=== PATIENT | female | born 1970 | race Caucasian/White ===

== ENCOUNTER 2017-07-11 09:54 | Inpatient (IN) | payer OTHER ==
[~2017-07-11] VITALS: Ht 154.9 cm; Wt 77.1 kg
--- NOTE | ~2017-07-11 | S ---
[facility] [place] [address] SURGICAL PATH RPT PROCEDURE Name: ZOYA ROY Room #: 443-P ADM IN M.R.#: [id number] Admission: 07/11/17 Date of : 74 Discharge: Report #: [id number] Path Case #: [id number] PATHOLOGY REPORT COLLECTION DATE: 07/14/2017 RECEIVED DATE: 07/14/2017 SUBMITTING PHYS: Dr. Alexis Mcgregor, OTHER PHYS: Dr. Remy Bernstein SPECIMEN(S) RECEIVED: A.Gallbladder * * * * * * * * * * * * FINAL DIAGNOSIS: Gallbladder, cholecystectomy: - Mild chronic cholecystitis. (IUV:mml; 07/17/2017) PATHOLOGIST: Flora Donato M.D. REPORT ELECTRONICALLY SIGNED BY: Flora Donato M.D. DATE/TIME: 07/17/2017 13:27 * * * * * * * * * * * * GROSS PATHOLOGY: Received in formalin labeled "Zoya Roy gallbladder," is a 7.1 x 3.0 x 1.1 cm, previously opened gallbladder with bile-stained serosal surfaces. Opening the gallbladder reveals a velvety, bile-stained mucosa and an average wall thickness of 0.1 cm. Calculi are not present and no masses are noted grossly. Emergency Vehicle Driver sections from the body and fundus are submitted along with the proximal margin in cassette A1. (CAA; 07/14/2017) CLINICAL HISTORY: Biliary dyskinesia INITIAL CPT CODE(S): A; 19317 Professional services performed by [facility] at [facility] [address], [place] [address] Technical services performed by [facility] at [address] [place] [address]. [facility] [address] [place] [address] SURGICAL PATH RPT PROCEDURE Name: ZOYA ROY Room #: 443-P ADM IN M.R.#: [id number] Admission: 07/11/17 Date of : 74 Discharge: Report #: [id number] Path Case #: [id number] [facility] [address] [address] PHONE: [phone] DIRECTOR: Anders Rothman M.D. * * * END OF REPORT * * *
[2017-07-11 09:59] VITALS: BP 136/104
[2017-07-11 11:26] LABS: URINE BILIRUBIN 2+ (Negative); URINE BLOOD 3+ (Negative); URINE CLARITY CLEAR; URINE COLOR YELLOW; URINE GLUCOSE-RANDOM* NEGATIVE (Negative); URINE KETONES TRACE (Negative); URINE LEUKOCYTES NEGATIVE (Negative); URINE NITRITE NEGATIVE (Negative); URINE PROTEIN (DIPSTICK) 1+ (Negative); URINE SPECIFIC GRAVITY 1.025 (1.005-1.035); URINE UROBILINOGEN 0.2 E.U./dl (0.2-1.0)
[2017-07-11 11:30] LABS: ICTOTEST (BILI CONFIRMATORY) Positive (Negative)
[2017-07-11 11:31] LABS: ABSOLUTE NEUTROPHILS 6.5 thou/uL (1.4-8.2); BASOPHILS 0.5 % (0.0-2.0); EOSINOPHILS 0.3 % (0.0-3.0); HEMATOCRIT 44.6 % (37.0-47.0); HEMOGLOBIN 15.3 gm/dL (12.0-15.0); LYMPHOCYTES 19.2 % (24.0-44.0); MCH 31.9 pg (26.0-34.0); MCHC 34.3 g/dL (28.0-37.0); MCV 92.8 fL (80.0-100.0); MONOCYTES 9.8 % (1.0-8.0); PLATELET COUNT 211 thou/uL (150-400); POLYS 70.2 % (36.0-66.0); RBC 4.81 mil/uL (4.20-5.00); RDW 14.9 % (10.5-14.5); WBC 9.2 thou/uL (4.0-11.0)
[2017-07-11 11:37] LABS: CRYSTALS None Seen /LPF (None Seen); HYALINE CASTS 4-10 Moderate /LPF (None Seen); SQUAMOUS >10 Many /LPF (0-3); URINE RBC 3-10 Few /HPF (0-2); URINE WBC 0-5 Rare /HPF (0-5)
[2017-07-11 11:54] LABS: CALCIUM 9.5 mg/dL (8.5-10.1); CREATININE 0.9 mg/dL (0.6-1.0); TOTAL BILIRUBIN 0.9 mg/dL (<0.1-1.0); TOTAL PROTEIN 8.3 g/dL (6.4-8.2)
[2017-07-11] MEDS ORDERED: SAPHRIS5 MG SUBLING (11:59)
[2017-07-11] MEDS ORDERED: MELATONIN5 M1 PO (12:00)
[2017-07-11] MEDS ORDERED: CLONAZEPAM 1 MG1 M1 PO (12:01)
[2017-07-11] MEDS ORDERED: DEPAKOTE ER500 MG PO (12:02)
[2017-07-11] MEDS ORDERED: LOPID600 MG PO (12:03)
[2017-07-11] MEDS ORDERED: LASIX 20 MG TAB20 MG PO (12:03)
[2017-07-11] MEDS ORDERED: OMEPRAZOLE 20 M20 MG PO (12:07)
[2017-07-11] MEDS ORDERED: PRAZOSIN 1 MG CA1 M1 PO (12:07)
[2017-07-11] MEDS ORDERED: KLOR-CON 1010 MEQ PO (12:07)
[2017-07-11 12:13] LABS: POTASSIUM 3.7 mmol/L (3.5-5.1)
[2017-07-11 17:41] VITALS: BP 112/84
[2017-07-11 18:15] VITALS: BP 118/84
[2017-07-11 18:24] VITALS: BP 135/90
[2017-07-11 19:52] VITALS: BP 135/85
[2017-07-11 21:52] LABS: AMP/METHAMP Negative (Negative); BARBITURATES Negative (Negative); BENZODIAZEPINES POSITIVE (Negative); COCAINE Negative (Negative); METHADONE Negative (Negative); OPIATES Negative (Negative); PCP Negative (Negative)
[2017-07-11 23:49] VITALS: BP 106/69
[2017-07-12 01:10] LABS: GLYCOHEMOGLOBIN (HGB A1C) 5.4 % (4.8-5.6)
[2017-07-12 03:43] VITALS: BP 100/67
[2017-07-12 08:43] VITALS: BP 120/84
[2017-07-12 09:09] LABS: HAV IgM AB (ANTI-HAV IgM) Negative (Negative); HEPATITIS B SURFACE AG Negative (Negative); HEPATITIS C VIRUS AB <0.1 (0.0-0.9)
[2017-07-12 10:29] LABS: ALBUMIN 3.1 g/dL (3.4-5.0); DIRECT BILIRUBIN 0.2 mg/dL (<0.1-0.3); TOTAL BILIRUBIN 0.6 mg/dL (<0.1-1.0); TOTAL PROTEIN 6.7 g/dL (6.4-8.2)
[2017-07-12 17:13] VITALS: BP 114/76
[2017-07-12 20:15] VITALS: BP 112/77
[2017-07-13 04:30] VITALS: BP 107/74
[2017-07-13 05:36] LABS: HEMATOCRIT 33.5 % (37.0-47.0); MCH 32.1 pg (26.0-34.0); MCV 94.4 fL (80.0-100.0); RBC 3.55 mil/uL (4.20-5.00); RDW 14.9 % (10.5-14.5); WBC 5.2 thou/uL (4.0-11.0)
[2017-07-13 05:40] LABS: HEMOGLOBIN 11.4 gm/dL (12.0-15.0)
[2017-07-13 05:52] LABS: ALBUMIN 2.5 g/dL (3.4-5.0); CREATININE 0.6 mg/dL (0.6-1.0); POTASSIUM 3.1 mmol/L (3.5-5.1); TOTAL BILIRUBIN 0.4 mg/dL (<0.1-1.0); TOTAL PROTEIN 5.8 g/dL (6.4-8.2)
[2017-07-13 05:54] LABS: CALCIUM 7.1 mg/dL (8.5-10.1)
[2017-07-13 11:00] VITALS: BP 93/48
[2017-07-13 15:06] LABS: IgG 875 mg/dL (700-1600)
[2017-07-13 15:56] VITALS: BP 110/73
[2017-07-13 19:26] VITALS: BP 105/73
[2017-07-14] VITALS (8 sets, daily range): BP systolic 82–127; BP diastolic 47–84
[2017-07-15 03:46] LABS: HEMATOCRIT 31.4 % (37.0-47.0); HEMOGLOBIN 10.7 gm/dL (12.0-15.0); MCH 32.5 pg (26.0-34.0); MCHC 34.1 g/dL (28.0-37.0); MCV 95.4 fL (80.0-100.0); RBC 3.29 mil/uL (4.20-5.00); RDW 15.3 % (10.5-14.5); WBC 6.8 thou/uL (4.0-11.0)
[2017-07-15 04:06] LABS: CALCIUM 8.2 mg/dL (8.5-10.1); CREATININE 0.7 mg/dL (0.6-1.0); POTASSIUM 3.6 mmol/L (3.5-5.1)
[2017-07-15 04:49] VITALS: BP 110/69
[2017-07-15 08:00] VITALS: BP 112/76
[2017-07-15 16:00] VITALS: BP 114/76
[2017-07-15 18:26] VITALS: BP 135/91
[2017-07-16 04:52] VITALS: BP 123/78
[2017-07-16 08:00] VITALS: BP 128/76
[2017-07-16] MEDS ORDERED: KEFLEX500 M1 PO (10:09)
[2017-07-16] MEDS ORDERED: NORCO 10-325 T1 EACH PO (10:24)
[2017-07-16 11:07] LABS: ABSOLUTE NEUTROPHILS 2.3 thou/uL (1.4-8.2); BASOPHILS 0.5 % (0.0-2.0); EOSINOPHILS 4.1 % (0.0-3.0); HEMATOCRIT 32.2 % (37.0-47.0); HEMOGLOBIN 10.9 gm/dL (12.0-15.0); LYMPHOCYTES 42.9 % (24.0-44.0); MCH 32.3 pg (26.0-34.0); MCHC 33.9 g/dL (28.0-37.0); MCV 95.3 fL (80.0-100.0); MONOCYTES 11.7 % (1.0-8.0); PLATELET COUNT 180 thou/uL (150-400); POLYS 40.8 % (36.0-66.0); RBC 3.38 mil/uL (4.20-5.00); RDW 15.4 % (10.5-14.5); WBC 5.7 thou/uL (4.0-11.0)
[2017-07-16 11:19] LABS: ALBUMIN 2.4 g/dL (3.4-5.0); CALCIUM 8.3 mg/dL (8.5-10.1); CREATININE 0.8 mg/dL (0.6-1.0); POTASSIUM 3.5 mmol/L (3.5-5.1); TOTAL BILIRUBIN 0.3 mg/dL (<0.1-1.0); TOTAL PROTEIN 5.4 g/dL (6.4-8.2)
[2017-07-16 16:00] VITALS: BP 113/78
[2017-07-16 19:17] VITALS: BP 134/90
[2017-07-17 00:05] VITALS: BP 105/66
[2017-07-17 04:53] VITALS: BP 118/70
[2017-07-17 05:39] LABS: HEMOGLOBIN 10.8 gm/dL (12.0-15.0); MCHC 33.7 g/dL (28.0-37.0); MCV 94.9 fL (80.0-100.0); RBC 3.37 mil/uL (4.20-5.00); RDW 15.4 % (10.5-14.5); WBC 5.6 thou/uL (4.0-11.0)
[2017-07-17 08:00] VITALS: BP 107/72
[2017-07-17 14:16] VITALS: BP 107/72
[2017-07-17] MEDS ORDERED: MIRALAX17 GM PO (15:20)
[2017-07-17] MEDS ORDERED: COLACE100 MG PO (15:20)
[2018-01-15] MEDS ORDERED: PENICILLIN VK500 M1 PO (14:30)
[2018-01-15] MEDS ORDERED: MOBIC15 MG PO (14:30)
[2018-02-11] MEDS ORDERED: PRAZOSIN HCL2 MG PO (13:31)
[2018-02-11] MEDS ORDERED: AMOXICILLIN 50500 MG PO (14:12)
[2018-02-11] MEDS ORDERED: NAPROSYN500 MG PO (14:12)
[2018-02-11] MEDS ORDERED: PHENERGAN 25 MG25 M1 PO (14:23)
== END 2017-07-17 17:45 | disposition home or self-care (01) | DRG 417 ==
LOC: ER 09:54 → 4S 12:51 → EROBS 12:51 → 4S 17:58 → ENTRNSPT 07-17 17:11 → 4S 07-17 17:45
PROVIDERS: Hospitalist; Internal Medicine Gastroenterology; Nurse Practitioner; Nurse Practitioner Family
PROC: BF131ZZ Fluoroscopy of Gallbladder and Bile Ducts using Low Osmolar Contrast (ICD-10-PCS; principal; 2017-07-14)
PROC: 0FT44ZZ Resection of Gallbladder, Percutaneous Endoscopic Approach (ICD-10-PCS; principal; 2017-07-14)
DX: K85.30 Drug induced acute pancreatitis without necrosis or infection (principal); E43 Unspecified severe protein-calorie malnutrition; F31.9 Bipolar disorder, unspecified; F43.10 Post-traumatic stress disorder, unspecified; F41.9 Anxiety disorder, unspecified; K82.8 Other specified diseases of gallbladder; K86.1 Other chronic pancreatitis; K81.1 Chronic cholecystitis; J45.909 Unspecified asthma, uncomplicated; E78.5 Hyperlipidemia, unspecified; F17.210 Nicotine dependence, cigarettes, uncomplicated; I10 Essential (primary) hypertension; K76.0 Fatty (change of) liver, not elsewhere classified; R73.9 Hyperglycemia, unspecified; Z98.891 History of uterine scar from previous surgery; Z71.6 Tobacco abuse counseling; Z68.32 Body mass index [BMI] 32.0-32.9, adult; Z79.899 Other long term (current) drug therapy; Z88.1 Allergy status to other antibiotic agents; Z88.8 Allergy status to other drugs, medicaments and biological substances
CPT/HCPCS: 10195; 50010; 50101; 50249; 50411; 50555; 50558; 50962; 51489; 51975; 52265; 53307; 53310; 54022; 54118; 55245; 55317; 56462; 56525; 56526; 62110; 62900; 70005

== ENCOUNTER 2017-09-12 10:15 | Inpatient (IN) | payer OTHER ==
[~2017-09-12] VITALS: Ht 157.5 cm; Wt 75.3 kg
[~2017-09-12 10:15] MED LIST: CLONAZEPAM 1 MG1 M1 PO; COLACE100 MG PO; DEPAKOTE ER500 MG PO; KEFLEX500 M1 PO; KLOR-CON 1010 MEQ PO; LASIX 20 MG TAB20 MG PO; LOPID600 MG PO; MELATONIN5 M1 PO; MIRALAX17 GM PO; NORCO 10-325 T1 EACH PO; OMEPRAZOLE 20 M20 MG PO; PRAZOSIN 1 MG CA1 M1 PO; SAPHRIS5 MG SUBLING
[2017-09-12 10:28] VITALS: BP 147/88
[2017-09-12 10:36] LABS: URINE BILIRUBIN 2+ (Negative); URINE BLOOD 1+ (Negative); URINE CLARITY CLEAR; URINE GLUCOSE-RANDOM* TRACE (Negative); URINE KETONES TRACE (Negative); URINE LEUKOCYTES NEGATIVE (Negative); URINE NITRITE NEGATIVE (Negative); URINE PROTEIN (DIPSTICK) 1+ (Negative)
[2017-09-12 10:39] LABS: ICTOTEST (BILI CONFIRMATORY) Negative (Negative); URINE COLOR DARK YELLOW
[2017-09-12 10:54] LABS: AMP/METHAMP Negative (Negative); BARBITURATES Negative (Negative); BENZODIAZEPINES POSITIVE (Negative); COCAINE Negative (Negative); METHADONE Negative (Negative); OPIATES Negative (Negative); PCP Negative (Negative)
[2017-09-12] MEDS ORDERED: SAPHRIS10 MG SUBLING (10:54)
[2017-09-12] MEDS ORDERED: FISH OIL 1,001000 M2 PO (10:56)
[2017-09-12 10:57] LABS: CASTS None Seen /LPF (None Seen); SQUAMOUS >10 Many /LPF (0-3); URINE WBC 0-5 Rare /HPF (0-5)
[2017-09-12 10:58] LABS: BACTERIA 1-9 Few /HPF (None Seen); CRYSTALS None Seen /LPF (None Seen); URINE RBC None Seen /HPF (0-2)
[2017-09-12 11:00] LABS: ABSOLUTE NEUTROPHILS 4.6 thou/uL (1.4-8.2); BASOPHILS 0.4 % (0.0-2.0); EOSINOPHILS 0.5 % (0.0-3.0); HEMATOCRIT 40.7 % (37.0-47.0); HEMOGLOBIN 14.2 gm/dL (12.0-15.0); MCH 32.1 pg (26.0-34.0); MCHC 34.8 g/dL (28.0-37.0); MCV 92.2 fL (80.0-100.0); MONOCYTES 10.3 % (1.0-8.0); PLATELET COUNT 250 thou/uL (150-400); POLYS 62.8 % (36.0-66.0); RBC 4.42 mil/uL (4.20-5.00); RDW 14.4 % (10.5-14.5); WBC 7.3 thou/uL (4.0-11.0)
[2017-09-12] MEDS ORDERED: UNICOMPLEX M TA1 TA1 PO (11:00)
[2017-09-12] MEDS ORDERED: TRAZODONE 150150 M1 PO (11:00)
[2017-09-12 11:12] LABS: CALCIUM 10.4 mg/dL (8.5-10.1)
[2017-09-12 11:15] LABS: POTASSIUM 2.8 mmol/L (3.5-5.1)
[2017-09-12 11:27] LABS: ALBUMIN 3.6 g/dL (3.4-5.0); TOTAL BILIRUBIN 0.9 mg/dL (<0.1-1.0); TOTAL PROTEIN 7.9 g/dL (6.4-8.2)
[2017-09-12 12:09] VITALS: BP 133/80
[2017-09-12 14:20] VITALS: BP 115/77
[2017-09-12 18:56] VITALS: BP 18/56
[2017-09-13 03:20] VITALS: BP 118/81
[2017-09-13 06:08] LABS: ALBUMIN 2.9 g/dL (3.4-5.0); CALCIUM 8.9 mg/dL (8.5-10.1); CREATININE 0.8 mg/dL (0.6-1.0); PHOSPHORUS 2.3 mg/dL (2.5-4.9)
[2017-09-13 08:00] VITALS: BP 119/81
[2017-09-13 15:53] VITALS: BP 131/94
[2017-09-13 19:02] VITALS: BP 137/90
[2017-09-14 04:14] VITALS: BP 102/75
[2017-09-14 05:50] LABS: ALBUMIN 2.7 g/dL (3.4-5.0); CALCIUM 9.3 mg/dL (8.5-10.1); CREATININE 0.7 mg/dL (0.6-1.0); TOTAL BILIRUBIN 1.2 mg/dL (<0.1-1.0); TOTAL PROTEIN 6.4 g/dL (6.4-8.2)
[2017-09-14 05:58] LABS: POTASSIUM 2.9 mmol/L (3.5-5.1)
[2017-09-14 07:32] VITALS: BP 126/87
[2017-09-14 15:52] VITALS: BP 117/80
[2017-09-14 19:22] VITALS: BP 131/93
[2017-09-15 04:00] VITALS: BP 120/80
[2017-09-15 06:36] LABS: HEMATOCRIT 36.7 % (37.0-47.0); HEMOGLOBIN 12.3 gm/dL (12.0-15.0); MCH 31.6 pg (26.0-34.0); MCHC 33.4 g/dL (28.0-37.0); MCV 94.6 fL (80.0-100.0); RBC 3.88 mil/uL (4.20-5.00); RDW 15.2 % (10.5-14.5); WBC 4.9 thou/uL (4.0-11.0)
[2017-09-15 07:02] LABS: ALBUMIN 2.6 g/dL (3.4-5.0); CALCIUM 9.5 mg/dL (8.5-10.1); CREATININE 0.7 mg/dL (0.6-1.0); POTASSIUM 3.6 mmol/L (3.5-5.1); TOTAL PROTEIN 6.4 g/dL (6.4-8.2)
[2017-09-15 07:05] LABS: ALBUMIN 2.6 g/dL (3.4-5.0); DIRECT BILIRUBIN 0.6 mg/dL (<0.1-0.3); TOTAL BILIRUBIN 1.1 mg/dL (<0.1-1.0); TOTAL PROTEIN 6.4 g/dL (6.4-8.2)
[2017-09-15 08:00] VITALS: BP 116/85
[2017-09-15 16:00] VITALS: BP 148/104
[2017-09-15 19:05] VITALS: BP 129/86
[2017-09-16 03:12] VITALS: BP 130/93
[2017-09-16 07:05] VITALS: BP 124/85
[2017-09-16] MEDS ORDERED: ALPRAZOLAM 0.0.25 M1 PO (10:04)
[2017-09-16] MEDS ORDERED: PERCOCET PO (10:04)
[2017-09-16 10:40] VITALS: BP 124/85
== END 2017-09-16 14:08 | disposition home or self-care (01) | DRG 438 ==
LOC: ER 10:15 → 4W 11:50 → EROBS 11:50 → 4W 13:22
PROVIDERS: Hospitalist; Internal Medicine Gastroenterology; Physician Assistant
DX: K85.20 Alcohol induced acute pancreatitis without necrosis or infection (principal); E43 Unspecified severe protein-calorie malnutrition; J45.909 Unspecified asthma, uncomplicated; E78.5 Hyperlipidemia, unspecified; F31.9 Bipolar disorder, unspecified; E87.6 Hypokalemia; F17.210 Nicotine dependence, cigarettes, uncomplicated; Z90.49 Acquired absence of other specified parts of digestive tract; Z79.899 Other long term (current) drug therapy; Z68.30 Body mass index [BMI] 30.0-30.9, adult; Z88.1 Allergy status to other antibiotic agents
CPT/HCPCS: 10040

== ENCOUNTER 2017-12-22 14:23 | Inpatient (IN) | payer OTHER ==
[~2017-12-22] VITALS: Ht 157.5 cm; Wt 65.8 kg
--- NOTE | ~2017-12-22 | EKG ---
[place] [address] [facility] [place] [address] ELECTROCARDIOGRAM REPORT Name: ZOYA ROY Room #: 422-P ADM IN M.R.#: [id number] Admission: 12/22/17 Attend Phys: Remy Barrientos MD Discharge: Date of : 74 Report #: [id number] THIS REPORT FOR: //name// [facility] ED Test Date: 2017-12-22 Test Time: 15:23:45 Pat Name: ZOYA ROY Department: Room: 422 Gender: F Steam Setter: MZOOK : 1970 Requested By: Gary Ardon Order Number: [id number] MD: Robbie Melton Measurements Intervals [place] Rate: 77 P: 59 MI: 116 QRS: 47 QRSD: 121 T: 54 QT: 577 QTc: 654 Interpretive Statements Sinus rhythm Ventricular bigeminy Borderline short MI interval Borderline repolarization abnormality No previous ECG available for comparison Electronically Signed On 12-23-2017 10:53:47 CDT by Robbie Melton [email or web address] <ELECTRONICALLY SIGNED> By: Robbie Melton MD, [facility] 12/23/17 1053 D: [id number] Robbie Melton MD, FACC /EPI
--- NOTE | ~2017-12-22 | HC ---
[place] [address] CONSULTATION Name: ZOYA ROY Room #: 422-P [facility] IN M.R.#: [id number] Admission: 12/22/17 Attend Phys: Remy Barrientos MD Discharge: Date of : 74 Report #: [id number] THIS REPORT FOR: //name// CC: Remy Bernstein DATE OF SERVICE: 12/23/2017 HISTORY OF PRESENT ILLNESS: The patient is a 47-year-old female with recent increasing abdominal pain, nausea, vomiting, had an elevated lipase level on admission of 3145. She has had several previous episodes of pancreatitis. She states this is her third. She has a history of alcohol abuse in the past. Apparently, she states consuming alcohol 2-3 times per week; however, there is documentation from her mother that she is drinking more than this. Her lipase has dropped today being n.p.o. with IV fluids, lipase at this time is 635. She is feeling better, still having some abdominal pain and some nausea, but no vomiting. She denies any fevers or chills. She does report diarrhea, but she has had diarrhea in the past. She states she has been on Creon at home, but ran out of this medication in the last few weeks. She also states she is scheduled for an EGD and colonoscopy this Monday by different gastroenterologists for diarrhea as well as blood in the stools, which appears to be Hemoccult positive. She does report intermittent heartburn symptoms. She denies any dysphagia. Her weight has been fairly stable. She denies any chest pain or shortness of breath currently. PAST MEDICAL HISTORY: Previous history of pancreatitis, asthma, hypertension, endometriosis, previous , bipolar disorder, post-traumatic stress disorder, depression, previous laparoscopic cholecystectomy in 2018. MEDICATIONS ON ADMISSION: Saphris, melatonin, clonazepam, Depakote, Lasix, Lopid, omeprazole 20 mg b.i.d., potassium chloride, prazosin, fish oil, trazodone, multivitamin with iron, Percocet p.r.n., alprazolam p.r.n. REVIEW OF SYSTEMS: As per HPI. ALLERGIES: ERYTHROMYCIN. SOCIAL HISTORY: She does smoke cigarettes approximately 2 packs per day. Again, she consumed alcohol, she states 2-3 times per week; however, there is a possible history of alcohol abuse. FAMILY HISTORY: Negative for colon cancer. PHYSICAL EXAMINATION: VITAL SIGNS: Temperature is 97.9, pulse 64, blood pressure 91/51, respiratory [address] [address] CONSULTATION Name: ZOYA ROY Room #: 422-P [facility] IN M.R.#: [id number] Admission: 12/22/17 Attend Phys: Remy Barrientos MD Discharge: Date of : 74 Report #: [id number] rate is 18. GENERAL: She is alert and oriented x 3, in no acute distress. HEENT: Sclerae nonicteric. Oropharynx clear. NECK: Supple, without lymphadenopathy. CARDIOVASCULAR: Regular rate and rhythm. CHEST: Clear to auscultation bilaterally. ABDOMEN: Soft. She is tender to palpation, nondistended, positive bowel sounds. EXTREMITIES: No cyanosis, clubbing or edema. LABORATORY DATA: Sodium 137, potassium 2.8, potassium yesterday was 3.0, chloride 102, bicarbonate 24, BUN 5, creatinine 0.6, glucose 111. AST is 90, lipase 635, this is down from 3145 yesterday. Total bilirubin 0.9, alkaline phosphatase 228, magnesium 1.5, total protein 7.8, albumin 3.8. Alcohol on admission less than 10. WBC is 5.3, hemoglobin 13.5 and platelet count is 122. HCG was negative. Previous viral hepatitis screening panel was all negative. Previous IgG subclasses were all normal. CT scan of the abdomen and pelvis on admission shows diffuse mild hazy peripancreatic inflammation and fat stranding consistent with acute pancreatitis and marked hepatic steatosis. ASSESSMENT AND PLAN: 1. Acute pancreatitis, suspect secondary to alcohol. Lipase is improved today. She is feeling better. Agree with clear liquids, which have been started. We will continue to monitor her levels. Continue IV fluids. The patient states she has been on Creon in the past. May need to consider restarting this in the near future as well. 2. Elevated liver function test, also likely secondary to alcohol. She has hepatic steatosis on CT scan. Obviously, would recommend discontinuing alcohol. 3. The patient is reportedly scheduled for EGD and colonoscopy on Monday. We will need to see how the patient does clinically over the weekend. Thank you for allowing me to participate in her care. <ELECTRONICALLY SIGNED> By: Toñito Hussein MD 12/24/17 1029 1249 44 Toñito Hussein MD /nt
[~2017-12-22 14:23] MED LIST changes: +ALPRAZOLAM 0.0.25 M1 PO; +FISH OIL 1,001000 M2 PO; +PERCOCET PO; +SAPHRIS10 MG SUBLING; +TRAZODONE 150150 M1 PO; +UNICOMPLEX M TA1 TA1 PO
[2017-12-22 14:35] VITALS: BP 135/92
[2017-12-22 15:16] LABS: ABSOLUTE NEUTROPHILS 4.3 thou/uL (1.4-8.2); BASOPHILS 0.8 % (0.0-2.0); EOSINOPHILS 0.3 % (0.0-3.0); HEMATOCRIT 42.3 % (37.0-47.0); HEMOGLOBIN 14.7 gm/dL (12.0-15.0); LYMPHOCYTES 28.8 % (24.0-44.0); MCH 33.4 pg (26.0-34.0); MCHC 34.8 g/dL (28.0-37.0); MONOCYTES 10.8 % (1.0-8.0); PLATELET COUNT 233 thou/uL (150-400); POLYS 59.3 % (36.0-66.0); RBC 4.41 mil/uL (4.20-5.00); RDW 14.5 % (10.5-14.5); WBC 7.3 thou/uL (4.0-11.0)
[2017-12-22 15:25] LABS: URINE BLOOD NEGATIVE (Negative); URINE CLARITY CLEAR; URINE COLOR YELLOW; URINE GLUCOSE-RANDOM* NEGATIVE (Negative); URINE KETONES 1+ (Negative); URINE LEUKOCYTES-REFLEX NEGATIVE (Negative); URINE NITRITE-REFLEX NEGATIVE (Negative); URINE PROTEIN (DIPSTICK) NEGATIVE (Negative); URINE UROBILINOGEN 0.2 E.U./dl (0.2-1.0)
[2017-12-22 15:26] LABS: ANION GAP 14 mmol/L (7-16); BUN 6 mg/dL (7-18); CALCIUM 9.3 mg/dL (8.5-10.1); CHLORIDE 96 mmol/L (98-107); CO2 25 mmol/L (21-32); CREATININE 0.8 mg/dL (0.6-1.0); GLUCOSE 169 mg/dL (74-106); SODIUM 135 mmol/L (136-145)
[2017-12-22 15:26] LABS: ICTOTEST (BILI CONFIRMATORY) Negative (Negative); URINE BILIRUBIN NEGATIVE (Negative)
[2017-12-22 15:34] LABS: ALBUMIN 3.8 g/dL (3.4-5.0); SGOT 90 U/L (15-37); SGPT 42 U/L (30-65); TOTAL BILIRUBIN 0.9 mg/dL (<0.1-1.0); TOTAL PROTEIN 7.8 g/dL (6.4-8.2); TROPONIN-I <0.06 ng/mL (<0.06)
[2017-12-22 15:47] LABS: LIPASE 3145 U/L (73-393)
[2017-12-22 17:08] VITALS: BP 135/92
[2017-12-22] MEDS ORDERED: CREON DR 6,0001 EACH PO (17:43)
[2017-12-22] MEDS ORDERED: LEXAPRO 10 MG T10 M2 PO (17:44)
[2017-12-22 18:31] VITALS: BP 127/76
[2017-12-22 18:35] VITALS: BP 128/89
[2017-12-22 19:28] VITALS: BP 134/90
[2017-12-23 04:39] VITALS: BP 91/51
[2017-12-23 05:54] LABS: CALCIUM 8.4 mg/dL (8.5-10.1); CREATININE 0.6 mg/dL (0.6-1.0)
[2017-12-23 05:57] LABS: POTASSIUM 2.8 mmol/L (3.5-5.1)
[2017-12-23 06:20] LABS: HEMATOCRIT 41.9 % (37.0-47.0); HEMOGLOBIN 13.5 gm/dL (12.0-15.0); MCHC 32.2 g/dL (28.0-37.0); RBC 4.09 mil/uL (4.20-5.00); RDW 14.9 % (10.5-14.5); WBC 5.3 thou/uL (4.0-11.0)
[2017-12-23 06:23] LABS: MCV 102.4 fL (80.0-100.0)
[2017-12-23 20:30] VITALS: BP 99/69
[2017-12-24 04:30] VITALS: BP 85/52
[2017-12-24 06:52] LABS: HEMOGLOBIN 12.8 gm/dL (12.0-15.0); MCHC 32.8 g/dL (28.0-37.0); MCV 100.3 fL (80.0-100.0); RBC 3.89 mil/uL (4.20-5.00); RDW 15.1 % (10.5-14.5); WBC 5.1 thou/uL (4.0-11.0)
[2017-12-24 07:03] LABS: CALCIUM 8.7 mg/dL (8.5-10.1); CREATININE 0.6 mg/dL (0.6-1.0); POTASSIUM 3.4 mmol/L (3.5-5.1)
[2017-12-24 08:27] VITALS: BP 84/58
[2017-12-24 16:26] VITALS: BP 117/76
[2017-12-24 20:00] VITALS: BP 120/74
[2017-12-25 04:08] VITALS: BP 117/84
[2017-12-25 05:51] LABS: MCHC 33.7 g/dL (28.0-37.0); RBC 3.58 mil/uL (4.20-5.00)
[2017-12-25 05:53] LABS: HEMOGLOBIN 12.1 gm/dL (12.0-15.0); MCH 33.9 pg (26.0-34.0); MCV 100.7 fL (80.0-100.0); PLATELET COUNT 203 thou/uL (150-400); RDW 15.1 % (10.5-14.5); WBC 6.2 thou/uL (4.0-11.0)
[2017-12-25 08:29] LABS: ABSOLUTE NEUTROPHILS 1.3 thou/uL (1.4-8.2); NUCLEATED RBCS 1 /100WBC; PLATELET ESTIMATE NORMAL
[2017-12-25] MEDS ORDERED: HYDROCODON-ACE1 EAC7 PO (09:42)
[2017-12-25] MEDS ORDERED: ZOFRAN ODT4 MG PO (09:43)
[2017-12-25 11:11] VITALS: BP 117/84
== END 2017-12-25 11:24 | disposition home or self-care (01) | DRG 440 ==
LOC: ER 14:23 → EROBS 16:23 → 4E 16:23
PROVIDERS: Emergency Medicine; Hospitalist
DX: K85.20 Alcohol induced acute pancreatitis without necrosis or infection (principal); E78.5 Hyperlipidemia, unspecified; F31.9 Bipolar disorder, unspecified; F41.9 Anxiety disorder, unspecified; I10 Essential (primary) hypertension; J45.909 Unspecified asthma, uncomplicated; F10.10 Alcohol abuse, uncomplicated; F43.10 Post-traumatic stress disorder, unspecified; F17.210 Nicotine dependence, cigarettes, uncomplicated; E87.6 Hypokalemia; Z88.1 Allergy status to other antibiotic agents; Z90.49 Acquired absence of other specified parts of digestive tract; Z79.2 Long term (current) use of antibiotics; Z79.899 Other long term (current) drug therapy
CPT/HCPCS: 10084

== ENCOUNTER 2018-03-06 18:05 | Inpatient (IN) | payer OTHER ==
[~2018-03-06] VITALS: Ht 157.5 cm; Wt 59.9 kg
[~2018-03-06 18:05] MED LIST changes: +AMOXICILLIN 50500 MG PO; +CREON DR 6,0001 EACH PO; +HYDROCODON-ACE1 EAC7 PO; +LEXAPRO 10 MG T10 M2 PO; +MOBIC15 MG PO; +NAPROSYN500 MG PO; +PENICILLIN VK500 M1 PO; +PHENERGAN 25 MG25 M1 PO; +PRAZOSIN HCL2 MG PO; +ZOFRAN ODT4 MG PO
[2018-03-06 18:08] VITALS: BP 120/86
[2018-03-06 19:12] LABS: ABSOLUTE NEUTROPHILS 2.1 thou/uL (1.4-8.2); BASOPHILS 1.6 % (0.0-2.0); EOSINOPHILS 2.3 % (0.0-3.0); HEMATOCRIT 38.5 % (37.0-47.0); HEMOGLOBIN 13.3 gm/dL (12.0-15.0); LYMPHOCYTES 54.4 % (24.0-44.0); MCH 33.3 pg (26.0-34.0); MCHC 34.6 g/dL (28.0-37.0); MCV 96.2 fL (80.0-100.0); MONOCYTES 8.6 % (1.0-8.0); PLATELET COUNT 212 thou/uL (150-400); POLYS 33.1 % (36.0-66.0); RDW 15.4 % (10.5-14.5); WBC 6.4 thou/uL (4.0-11.0)
[2018-03-06 19:20] LABS: ANION GAP 14 mmol/L (7-16); BUN 14 mg/dL (7-18); CALCIUM 10.1 mg/dL (8.5-10.1); CHLORIDE 100 mmol/L (98-107); CO2 24 mmol/L (21-32); CREATININE 0.8 mg/dL (0.6-1.0); GLUCOSE 129 mg/dL (74-106); SODIUM 138 mmol/L (136-145)
[2018-03-06 19:28] LABS: TROPONIN-I <0.06 ng/mL (<0.06)
[2018-03-06 19:51] LABS: URINE BLOOD NEGATIVE (Negative); URINE CLARITY CLEAR; URINE COLOR YELLOW; URINE GLUCOSE-RANDOM* NEGATIVE (Negative); URINE KETONES TRACE (Negative); URINE LEUKOCYTES-REFLEX NEGATIVE (Negative); URINE NITRITE-REFLEX NEGATIVE (Negative); URINE PROTEIN (DIPSTICK) NEGATIVE (Negative)
[2018-03-06 19:59] LABS: AMP/METHAMP Negative (Negative); BARBITURATES Negative (Negative); BENZODIAZEPINES Negative (Negative); COCAINE Negative (Negative); METHADONE Negative (Negative); OPIATES Negative (Negative); PCP Negative (Negative)
[2018-03-06 20:02] LABS: ICTOTEST (BILI CONFIRMATORY) Negative (Negative); URINE BILIRUBIN NEGATIVE (Negative)
[2018-03-06] MEDS ORDERED: OMEPRAZOLE40 MG PO (20:05)
[2018-03-06] MEDS ORDERED: NEURONTIN 400400 M1 PO (20:08)
[2018-03-06] MEDS ORDERED: SYMBICORT160 MCG/4. INH (20:08)
[2018-03-06] MEDS ORDERED: VENTOLIN HFA 1818 GM INH (20:09)
[2018-03-06] MEDS ORDERED: SINGULAIR 10 MG10 M1 PO (20:09)
[2018-03-06] MEDS ORDERED: ZYRTEC10 M5 PO (20:10)
[2018-03-06] MEDS ORDERED: POTASSIUM CHLO10 MEQ PO (20:15)
[2018-03-06 20:38] VITALS: BP 119/81
[2018-03-06 20:51] VITALS: BP 121/83
[2018-03-06] MEDS ORDERED: NICOTINE TRANSD21 M1 ×2 (21:06→21:07)
[2018-03-06 21:10] VITALS: BP 126/92
[2018-03-07] VITALS: BP 119/77
[2018-03-07 01:22] LABS: CALCIUM 8.6 mg/dL (8.5-10.1); CREATININE 0.8 mg/dL (0.6-1.0); POTASSIUM 3.9 mmol/L (3.5-5.1)
[2018-03-07 04:25] VITALS: BP 133/83
[2018-03-07 05:46] LABS: DIRECT BILIRUBIN < 0.1 mg/dL (<0.1-0.3); SGOT 29 U/L (15-37); SGPT 24 U/L (30-65); TOTAL BILIRUBIN 0.4 mg/dL (<0.1-1.0)
[2018-03-07 07:48] VITALS: BP 108/77
[2018-03-07] MEDS ORDERED: LACTULOSE PO (09:27)
[2018-03-07] MEDS ORDERED: DEPAKOTE500 MG PO (09:27)
[2018-03-07 09:58] VITALS: BP 108/77
[2018-03-07 11:23] VITALS: BP 111/82
[2018-03-07 14:01] VITALS: BP 108/77
== END 2018-03-07 14:06 | disposition home or self-care (01) | DRG 640 ==
LOC: ER 18:05 → 3W 20:21 → EROBS 20:21 → 3W 20:51 → ENTRNSPT 03-07 14:00 → EDTRNSPTSTS 03-07 14:02 → 3W 03-07 14:06
PROVIDERS: Emergency Medicine; Nurse Practitioner Family
DX: E87.1 Hypo-osmolality and hyponatremia (principal); G93.41 Metabolic encephalopathy; G93.40 Encephalopathy, unspecified; F10.129 Alcohol abuse with intoxication, unspecified; J45.909 Unspecified asthma, uncomplicated; I10 Essential (primary) hypertension; E78.5 Hyperlipidemia, unspecified; F31.9 Bipolar disorder, unspecified; F17.210 Nicotine dependence, cigarettes, uncomplicated; F41.9 Anxiety disorder, unspecified; R74.0 Nonspecific elevation of levels of transaminase and lactic acid dehydrogenase [LDH]; F19.10 Other psychoactive substance abuse, uncomplicated; Z90.49 Acquired absence of other specified parts of digestive tract; Z88.1 Allergy status to other antibiotic agents; Z79.899 Other long term (current) drug therapy
CPT/HCPCS: 10879

== ENCOUNTER 2018-04-14 18:46 | Emergency (ER) | payer OTHER ==
[~2018-04-14] VITALS: Ht 157.5 cm; Wt 64.4 kg
--- NOTE | ~2018-04-14 | EKG ---
[address] [place] [address] ELECTROCARDIOGRAM REPORT Name: ROYZOYA Room #: DEP YUNIOR Estrada#: [id number] Admission: 04/14/18 Attend Phys: Discharge: 04/14/18 Date of : 74 Report #: [id number] THIS REPORT FOR: //name// [facility] ED Test Date: 2018-04-14 Test Time: 19:18:21 Pat Name: ZOYA ROY Department: Room: Gender: F Sports Umpire: MELISSACHYNA : 1970 Requested By: Dalton Mixon Order Number: [id number] MD: Karri Cohen Measurements Intervals [place] Rate: 72 P: 54 MO: 142 QRS: 10 QRSD: 106 T: 13 QT: 444 QTc: 486 Interpretive Statements Sinus rhythm Low voltage, precordial leads Compared to ECG 12/22/2017 15:23:45 Electronically Signed On 04-15-2018 20:44:12 CASH REGISTER BALANCER by Karri Cohen [email or web address] <ELECTRONICALLY SIGNED> By: Karri Cohen MD 04/15/182043 17 191 Karri Cohen MD /DAYNA
[~2018-04-14 18:46] MED LIST changes: +DEPAKOTE500 MG PO; +LACTULOSE PO; +NEURONTIN 400400 M1 PO; +NICOTINE TRANSD21 M1; +OMEPRAZOLE40 MG PO; +POTASSIUM CHLO10 MEQ PO; +SINGULAIR 10 MG10 M1 PO; +SYMBICORT160 MCG/4. INH; +VENTOLIN HFA 1818 GM INH; +ZYRTEC10 M5 PO
[2018-04-14 19:16] LABS: HEMATOCRIT 38.5 % (37.0-47.0); HEMOGLOBIN 13.6 gm/dL (12.0-15.0); MCH 33.8 pg (26.0-34.0); MCHC 35.2 g/dL (28.0-37.0); PLATELET COUNT 328 thou/uL (150-400); RBC 4.02 mil/uL (4.20-5.00); RDW 15.5 % (10.5-14.5); WBC 7.3 thou/uL (4.0-11.0)
[2018-04-14 19:21] LABS: CALCIUM 8.9 mg/dL (8.5-10.1); CREATININE 0.8 mg/dL (0.6-1.0); POTASSIUM 3.3 mmol/L (3.5-5.1)
[2018-04-14 19:28] LABS: TOTAL BILIRUBIN 0.3 mg/dL (<0.1-1.0); TOTAL PROTEIN 7.5 g/dL (6.4-8.2)
[2018-04-14 20:03] LABS: ABSOLUTE NEUTROPHILS 1.6 thou/uL (1.4-8.2); ATYPICAL LYMPHS 2 %
[2018-04-14] MEDS ORDERED: ZOFRAN ODT4 MG PO (21:36)
[2018-04-14 22:15] VITALS: BP 122/74
== END 2018-04-14 21:53 | disposition home or self-care (01) ==
LOC: ER 18:46
PROVIDERS: Physician Assistant
DX: R11.2 Nausea with vomiting, unspecified (principal); F10.129 Alcohol abuse with intoxication, unspecified; K70.0 Alcoholic fatty liver; I10 Essential (primary) hypertension; J45.909 Unspecified asthma, uncomplicated; E78.5 Hyperlipidemia, unspecified; F32.9 Major depressive disorder, single episode, unspecified; Z90.49 Acquired absence of other specified parts of digestive tract; F17.210 Nicotine dependence, cigarettes, uncomplicated; Z88.1 Allergy status to other antibiotic agents

== ENCOUNTER 2018-05-28 16:44 | Emergency (ER) | payer OTHER ==
[~2018-05-28] VITALS: Ht 162.6 cm; Wt 63.5 kg
[2018-05-28 16:45] VITALS: BP 118/76
[2018-05-28] MEDS ORDERED: KEFLEX500 M1 PO (17:34)
[2018-05-28] MEDS ORDERED: NAPROSYN500 MG PO (17:34)
== END 2018-05-28 17:45 | disposition home or self-care (01) ==
LOC: ER 16:44 → EDBD 16:44 → ER 17:45
DX: L03.012 Cellulitis of left finger (principal); K04.7 Periapical abscess without sinus; K02.9 Dental caries, unspecified; F17.210 Nicotine dependence, cigarettes, uncomplicated; N80.9 Endometriosis, unspecified; F31.9 Bipolar disorder, unspecified; J45.909 Unspecified asthma, uncomplicated; I10 Essential (primary) hypertension; E78.5 Hyperlipidemia, unspecified; Z90.89 Acquired absence of other organs; Z98.890 Other specified postprocedural states; Z90.49 Acquired absence of other specified parts of digestive tract; Z88.1 Allergy status to other antibiotic agents

== ENCOUNTER 2018-06-03 18:27 | Emergency (ER) | payer OTHER ==
[~2018-06-03] VITALS: Ht 154.9 cm; Wt 61.2 kg
[2018-06-03 18:30] VITALS: BP 125/86
[2018-06-03] MEDS ORDERED: MOBIC15 MG PO (18:40)
[2018-06-03] MEDS ORDERED: PENICILLIN VK500 M1 PO (18:40)
== END 2018-06-03 19:15 | disposition home or self-care (01) ==
LOC: ER 18:27 → EDBD 18:27 → ER 19:15
DX: K08.89 Other specified disorders of teeth and supporting structures (principal); G89.29 Other chronic pain; R51 Headache; F17.210 Nicotine dependence, cigarettes, uncomplicated; N80.9 Endometriosis, unspecified; F31.9 Bipolar disorder, unspecified; J45.909 Unspecified asthma, uncomplicated; I10 Essential (primary) hypertension; E78.5 Hyperlipidemia, unspecified; Z90.89 Acquired absence of other organs; Z98.890 Other specified postprocedural states; Z90.49 Acquired absence of other specified parts of digestive tract; Z88.1 Allergy status to other antibiotic agents

== ENCOUNTER 2018-06-23 16:45 | Emergency (ER) | payer OTHER ==
[~2018-06-23] VITALS: Ht 154.9 cm; Wt 61.2 kg
[2018-06-23 16:55] VITALS: BP 119/72
[2018-06-23] MEDS ORDERED: MOBIC7.5 MG PO (17:41)
== END 2018-06-23 17:54 | disposition home or self-care (01) ==
LOC: ER 16:45
DX: S90.112A Contusion of left great toe without damage to nail, initial encounter (principal); J45.909 Unspecified asthma, uncomplicated; I10 Essential (primary) hypertension; E78.5 Hyperlipidemia, unspecified; N80.9 Endometriosis, unspecified; F31.9 Bipolar disorder, unspecified; F17.210 Nicotine dependence, cigarettes, uncomplicated; Z90.49 Acquired absence of other specified parts of digestive tract; Z98.890 Other specified postprocedural states; Z88.1 Allergy status to other antibiotic agents; X50.9XXA Other and unspecified overexertion or strenuous movements or postures, initial encounter; Y93.89 Activity, other specified; Y92.89 Other specified places as the place of occurrence of the external cause; Y99.8 Other external cause status

== ENCOUNTER 2018-07-05 19:54 | Emergency (ER) | payer OTHER ==
[~2018-07-05] VITALS: Ht 157.5 cm; Wt 61.2 kg
[~2018-07-05 19:54] MED LIST changes: +MOBIC7.5 MG PO
[2018-07-05 21:29] VITALS: BP 100/56
== END 2018-07-05 21:30 | disposition home or self-care (01) ==
LOC: ER 19:54
DX: S83.8X2A Sprain of other specified parts of left knee, initial encounter (principal); S93.492A Sprain of other ligament of left ankle, initial encounter; F17.210 Nicotine dependence, cigarettes, uncomplicated; N80.9 Endometriosis, unspecified; F31.9 Bipolar disorder, unspecified; J45.909 Unspecified asthma, uncomplicated; I10 Essential (primary) hypertension; E78.5 Hyperlipidemia, unspecified; Z98.890 Other specified postprocedural states; Z90.89 Acquired absence of other organs; Z88.1 Allergy status to other antibiotic agents; Z90.49 Acquired absence of other specified parts of digestive tract; W00.0XXA Fall on same level due to ice and snow, initial encounter; Y92.89 Other specified places as the place of occurrence of the external cause; Y93.89 Activity, other specified; Y99.8 Other external cause status

== ENCOUNTER 2018-08-19 13:01 | Emergency (ER) | payer OTHER ==
[~2018-08-19] VITALS: Ht 157.5 cm; Wt 61.2 kg
[2018-08-19 13:34] LABS: ABSOLUTE NEUTROPHILS 3.8 thou/uL (1.4-8.2); BASOPHILS 0.9 % (0.0-2.0); EOSINOPHILS 1.3 % (0.0-3.0); HEMATOCRIT 40.9 % (37.0-47.0); LYMPHOCYTES 38.5 % (24.0-44.0); MCH 32.4 pg (26.0-34.0); MCHC 34.1 g/dL (28.0-37.0); MCV 94.9 fL (80.0-100.0); POLYS 52.3 % (36.0-66.0); RBC 4.31 mil/uL (4.20-5.00); RDW 18.8 % (10.5-14.5); WBC 7.3 thou/uL (4.0-11.0)
[2018-08-19 13:48] LABS: CALCIUM 8.9 mg/dL (8.5-10.1); CREATININE 0.7 mg/dL (0.6-1.0); POTASSIUM 3.1 mmol/L (3.5-5.1)
[2018-08-19 13:55] LABS: ALBUMIN 4.1 g/dL (3.4-5.0); TOTAL BILIRUBIN 0.5 mg/dL (<0.1-1.0); TOTAL PROTEIN 8.1 g/dL (6.4-8.2)
[2018-08-19 14:06] LABS: URINE BILIRUBIN NEGATIVE (Negative); URINE BLOOD NEGATIVE (Negative); URINE CLARITY CLEAR; URINE COLOR YELLOW; URINE GLUCOSE-RANDOM* NEGATIVE (Negative); URINE KETONES NEGATIVE (Negative); URINE LEUKOCYTES-REFLEX 3+ (Negative); URINE NITRITE-REFLEX NEGATIVE (Negative); URINE PROTEIN (DIPSTICK) NEGATIVE (Negative); URINE UROBILINOGEN 0.2 E.U./dl (0.2-1.0)
[2018-08-19 14:10] LABS: PLATELET COUNT 227 thou/uL (150-400)
[2018-08-19 14:11] LABS: ANISOCYTOSIS 1+; LARGE PLATELETS OCCASIONAL; PLATELET ESTIMATE NORMAL
[2018-08-19 14:14] LABS: SQUAMOUS >10 Many /LPF (0-3)
[2018-08-19 14:15] LABS: CASTS None Seen /LPF (None Seen); CRYSTALS None Seen /LPF (None Seen); URINE RBC 0-2 Rare /HPF (0-2); URINE WBC-REFLEX >25 Many /HPF (0-5)
[2018-08-19] MEDS ORDERED: KEFLEX500 M1 PO (15:33)
[2018-08-19] MEDS ORDERED: FLAGYL500 M1 PO (15:33)
[2018-08-19] MEDS ORDERED: KLOR-CON 1010 MEQ PO (15:33)
[2018-08-19] MEDS ORDERED: PHENERGAN 25 MG25 M1 PO (15:33)
[2018-08-19] MEDS ORDERED: PEPCID20 MG PO (15:33)
[2018-08-19 15:45] VITALS: BP 107/80
== END 2018-08-19 15:45 | disposition home or self-care (01) ==
LOC: ER 13:01
PROVIDERS: Physician Assistant
DX: N39.0 Urinary tract infection, site not specified (principal); A59.01 Trichomonal vulvovaginitis; E87.6 Hypokalemia; R11.2 Nausea with vomiting, unspecified; R19.7 Diarrhea, unspecified; R84.5 Abnormal microbiological findings in specimens from respiratory organs and thorax; F10.10 Alcohol abuse, uncomplicated; Y90.4 Blood alcohol level of 80-99 mg/100 ml; J45.909 Unspecified asthma, uncomplicated; I10 Essential (primary) hypertension; E78.5 Hyperlipidemia, unspecified; N80.9 Endometriosis, unspecified; F31.9 Bipolar disorder, unspecified; F17.210 Nicotine dependence, cigarettes, uncomplicated; Z90.49 Acquired absence of other specified parts of digestive tract; Z88.1 Allergy status to other antibiotic agents; Z98.890 Other specified postprocedural states

== ENCOUNTER 2018-08-24 22:17 | Inpatient (IN) | payer OTHER ==
[~2018-08-24] VITALS: Ht 157.5 cm; Wt 78.3 kg
[~2018-08-24 22:17] MED LIST changes: +FLAGYL500 M1 PO; +PEPCID20 MG PO
[2018-08-24 22:55] LABS: URINE BILIRUBIN NEGATIVE (Negative); URINE BLOOD NEGATIVE (Negative); URINE CLARITY CLEAR; URINE COLOR YELLOW; URINE GLUCOSE-RANDOM* NEGATIVE (Negative); URINE KETONES 1+ (Negative); URINE LEUKOCYTES-REFLEX TRACE (Negative); URINE NITRITE-REFLEX NEGATIVE (Negative); URINE PROTEIN (DIPSTICK) NEGATIVE (Negative); URINE SPECIFIC GRAVITY 1.015 (1.005-1.035); URINE UROBILINOGEN 0.2 E.U./dl (0.2-1.0)
[2018-08-24 23:12] VITALS: BP 96/59
[2018-08-24 23:49] LABS: ABSOLUTE NEUTROPHILS 3.1 thou/uL (1.4-8.2); BASOPHILS 1.3 % (0.0-2.0); EOSINOPHILS 1.7 % (0.0-3.0); HEMATOCRIT 40.9 % (37.0-47.0); HEMOGLOBIN 14.1 gm/dL (12.0-15.0); LYMPHOCYTES 44.8 % (24.0-44.0); MCH 32.5 pg (26.0-34.0); MCHC 34.6 g/dL (28.0-37.0); MCV 93.9 fL (80.0-100.0); MONOCYTES 9.8 % (1.0-8.0); PLATELET COUNT 228 thou/uL (150-400); POLYS 42.4 % (36.0-66.0); RBC 4.35 mil/uL (4.20-5.00); RDW 18.5 % (10.5-14.5); WBC 7.4 thou/uL (4.0-11.0)
[2018-08-25 00:04] LABS: CALCIUM 9.3 mg/dL (8.5-10.1); CREATININE 0.7 mg/dL (0.6-1.0); TOTAL BILIRUBIN 0.3 mg/dL (<0.1-1.0); TOTAL PROTEIN 7.5 g/dL (6.4-8.2)
[2018-08-25 00:10] LABS: POTASSIUM 2.9 mmol/L (3.5-5.1)
[2018-08-25 02:55] VITALS: BP 97/67
[2018-08-25 04:10] VITALS: BP 97/67
[2018-08-25 04:27] VITALS: BP 97/67
[2018-08-25 05:54] VITALS: BP 82/50
[2018-08-25 07:04] LABS: CALCIUM 8.4 mg/dL (8.5-10.1); CREATININE 0.7 mg/dL (0.6-1.0); MAGNESIUM 1.3 mg/dL (1.8-2.4); POTASSIUM 3.5 mmol/L (3.5-5.1)
--- NOTE | 2018-08-25 07:42 | NUR ---
PT IS AN ER ADMIT WHO WAS ADMITTED WITH ADOMINAL PAIN, NAUSEA AND VOMITING. PT NAUSEAOUS UPON ARRIVING TO THE FLOOR. SCHEDULED MEDS ADMINISTERED TO PT. PT IS ALERT AND ORIENTED X4. NO SIGN OF DISTRESS NOTED IN PT. ADMISSION ASSESSMENT AND EDUCATION COMPLETED. ZOFRAN ADMINISTERED TO PT DUE TO PT COMPLAINING OF NAUSEA. PT IS NPO. NO FURTHER NEEDS STATED AT THIS TIME.
[2018-08-25 11:25] VITALS: BP 106/70
--- NOTE | 2018-08-25 18:31 | NUR ---
ASSUMED CARE OF PATIENT AT 0700. PATIENT IS BEING SUPPLEMENTED WITH POTASSIUM AND MAGNESIUM WHICH TOOK THE ENTIRE COURSE OF THE DAY TO RUN DUE TO THE PATIENT'S COMPLAINTS OF PAIN. ASSESSMENTS CHARTED. PATIENT IS REQUESTING PAIN MEDS AND NAUSEA MEDS EVERY FOUR HOURS EXACTLY. PATIENT IS VERY TIME CONSUMING. PATIENT TO CONTINUE WITH POC.
[2018-08-25 20:09] LABS: MAGNESIUM 2.5 mg/dL (1.8-2.4); POTASSIUM 3.4 mmol/L (3.5-5.1)
[2018-08-25 23:49] VITALS: BP 124/88
--- NOTE | 2018-08-26 04:54 | NUR ---
ASSUMED PT CARE AT 1900 WITH NO SIGN OF DISTRESS NOTED IN PT. PT IS ALERT AND ORIENTED. PT IS STABLE AND LAYING IN PAIN. SCHEDULED MEDS ADMINISTERED TO PT. VITAL SIGNS STABLE. PAIN MEDICATION ADMINISTERED NEEDED. NO FURTHER NEEDS AT THIS TIME.
[2018-08-26 05:08] LABS: HEMATOCRIT 37.8 % (37.0-47.0); HEMOGLOBIN 12.6 gm/dL (12.0-15.0); MCH 32.2 pg (26.0-34.0); MCHC 33.2 g/dL (28.0-37.0); MCV 96.7 fL (80.0-100.0); RBC 3.91 mil/uL (4.20-5.00); WBC 6.5 thou/uL (4.0-11.0)
[2018-08-26 05:18] LABS: CALCIUM 7.4 mg/dL (8.5-10.1); CREATININE 0.5 mg/dL (0.6-1.0); POTASSIUM 3.8 mmol/L (3.5-5.1)
[2018-08-26 05:36] VITALS: BP 84/50
[2018-08-26 07:51] VITALS: BP 84/44
[2018-08-26 09:33] VITALS: BP 117/83
--- NOTE | 2018-08-26 16:52 | NUR ---
ASSUMED CARE OF PT AT 0700. PT A&OX4, UP AD CARMINA. PT HAD LOW BLOOD PRESSURE THIS AM AND PAIN MED HELD UNTIL PT WAS MORE AWAKE AND BLOOD PRESSURE NORMAL. PT'S PAIN AND NAUSEA PARTIALLY CONTROLLED WITH Q4 MORPHINE AND ZOFRAN. WILL CONT WITH POC
[2018-08-26 19:58] VITALS: BP 109/71
[2018-08-27 05:20] VITALS: BP 111/78
--- NOTE | 2018-08-27 05:58 | NUR ---
PT AMBULATING TO BATHROOM INDEPENDENTLY AND IS TOLERATING WELL. MORPHINE PROVIDING PAIN RELIEF. ZOFRAN NAUSEA RELIEF. RESTING COMFORTABLY. NO NEEDS VOICED. CALL LIGHT WITHIN REACH. WILL CONTINUE TO PROVIDE FREQUENT OBSERVATION.
[2018-08-27 08:00] VITALS: BP 97/61
[2018-08-27 10:42] LABS: CALCIUM 8.6 mg/dL (8.5-10.1); CREATININE 0.4 mg/dL (0.6-1.0); POTASSIUM 4.2 mmol/L (3.5-5.1)
[2018-08-27 12:34] VITALS: BP 112/73
--- NOTE | 2018-08-27 16:38 | NUR ---
Met with patient who resides at home with mother and uncle. She is in process of moving to independent living but at this time will dc to their home. patient does not work she rec disability. Patient does not drive. She plans uber home. She goes to [facility]. 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 She has an apt this . Patient reports she may need a note to cont to attend workouts at "the [facility]" in [place]. This program through [employer]. Bus takes patient to workout. Anticipate no dc needs but a note. EVALUATION SPECIALIST independent with all adls.
[2018-08-27 17:50] VITALS: BP 130/92
--- NOTE | 2018-08-27 19:48 | NUR ---
ASSUMED CARE OF PT AT 0700. PT SLEEPY, A&OX4, UP AD CARMINA. PT'S VITALS WNL, BP SLIGHTLY LOW IN AM. PT OFFERED SHOWER SEVERAL TIMES BUT REFUSED. PT WAS TO TRANSFER TO SENIOR SUITES BUT DENIED DUE TO AGE. PT HAD PAIN PARTIALLY CONTROLLED WITH MED AND SLEEP. PT HAD FULL LIQUIDS FOR LUNCH AND TOLERATED. PT HAD SOFT/FIBER RESTRICT FOR DINNER AND ONLY HAD A FEW BITES. PT HAD CT ABD TODAY. WILL CONT WITH POC.
[2018-08-27 19:51] VITALS: BP 131/80
[2018-08-28 05:29] LABS: CALCIUM 9.9 mg/dL (8.5-10.1); CREATININE 0.6 mg/dL (0.6-1.0); POTASSIUM 4.3 mmol/L (3.5-5.1)
--- NOTE | 2018-08-28 05:35 | NUR ---
ASSUMED CARE AROUND 1900. ADMIT WITH PANCREATITIS. AXOX4. PERSISTENT AB PAIN AND NAUSEA. TREATED PER MD ORDER. NO S/S ACUTE DISTRESS NOTED OR REPROTED AT THIS TIME. WILL CONT TO MONITOR FOR ANY CHANGES IN CONDITION.
[2018-08-28 05:50] VITALS: BP 139/80
[2018-08-28 07:39] LABS: HEMATOCRIT 37.3 % (37.0-47.0); MCH 33.6 pg (26.0-34.0); MCHC 34.9 g/dL (28.0-37.0); MCV 96.5 fL (80.0-100.0); RBC 3.87 mil/uL (4.20-5.00); RDW 18.2 % (10.5-14.5); WBC 4.9 thou/uL (4.0-11.0)
[2018-08-28 09:20] VITALS: BP 125/75
[2018-08-28] MEDS ORDERED: NORCO 5-325 TA1 EACH PO (13:43)
[2018-08-28 16:09] VITALS: BP 144/77
--- NOTE | 2018-08-28 17:14 | NUR ---
ASSUMED CARE OF PT AT SHIFT CHANGE. ASSESSMENTS CHARTED. MEDS GIVEN PER JUL. PT ALERT AND ORIENTED, VSS, O2 SATS WNL ON ROOM AIR. NO S/SX OF CARIAC OR RESP DISTRESS NOTED. PT C/O ABD PAIN, MANAGED WITH PO AND IV PAIN MEDS. C/O NAUSEA AND VOMITING, MANAGED WITH IV ZOFRAN. GI SAW PT, PLAN IS FOR EGD IN AM. VOMITING REPORTED TO GI PHYSICIAN, ORDERS RECEIVED FOR FULL LIQUID DIET UNTIL MIDNIGHT. PT UP SBA, TOLERATES WELL. DENIES CONCERNS AT THIS TIME. WILL CONTINUE TO MONITOR AND FOLLOW POC.
[2018-08-28 19:35] VITALS: BP 136/85
--- NOTE | 2018-08-29 04:01 | NUR ---
ASSUMED CARE 1899. VSS. ASSESSMENT CHARTED. PT AB PAIN CONTROLED WITH PRN PAIN MEDS. PT C/O N/V THROUGHOUT NIGHT, X2 CLEAR EMESIS- PARTIAL CONTROLED WITH PRN NAUSEA MEDS PER EMAR, SHOE STOCK ASSOCIATE NOTIFIED COMPAZINE ADDED PRN. NPO AFTER MIDNIGHT PLAN FOR EGD THIS AM. WILL CONTINUE TO MONITOR AND WITH POC.
[2018-08-29 05:36] VITALS: BP 138/80
[2018-08-29 07:19] VITALS: BP 129/72
--- NOTE | 2018-08-29 17:00 | NUR ---
ASSUMED CARE OF PT AT SHIFT CHANGE. ASSESSMENTS CHARTED. MEDS GIVEN PER JUL. PT ALERT AND ORIENTED, VSS, C/O ABD PAIN, MANAGED WITH PO AND IV PAIN MEDS. O2 SATS WNL ON ROOM AIR, NO S/SX OF CARD OR RESP DISTRESS NOTED. PT DOWN FOR EGD THIS AM. UPON RETURN PT REMAINS ALERT AND ORIENTED, CONTINUES TO C/O ABD PAIN. C/O NAUSEA THIS SHIFT, MANAGED WITH IV ZOFRAN. PT DID NOT HAVE EPISODES OF VOMITING THIS SHIFT. URINE OUTPUT ADEQUATE, TOLERATING DIET. DENIES CONCERNS AT THIS TIME. WILL CONT TO MONITOR AND FOLLOW POC.
[2018-08-29 19:07] VITALS: BP 106/62
[2018-08-30 04:45] VITALS: BP 100/64
[2018-08-30 08:00] VITALS: BP 113/63
--- NOTE | 2018-08-30 11:02 | P ---
[facility] [address] PROCEDURE REPORT Name: ZOYA ROY Room #: 218-P ADM IN M.R.#: [id number] Admission: 08/25/18 ������������������ Attend Phys: Donato Dietz MD Discharge: ������������������ Date of : 74 Report #: [id number] THIS REPORT FOR: //name// CC: Donato Bernstein MD DATE OF SERVICE: 08/29/2018 PROCEDURE: Esophagogastroduodenoscopy with biopsies. INDICATION FOR PROCEDURE: This patient has abdominal pain and nausea of undetermined etiology. CT scan shows edema and erythema of the first and second portions of the duodenum. EGD is being performed to evaluate this area more thoroughly. Informed consent for this procedure was obtained prior to the administration of any medication. The risks of the procedure, which include bleeding, perforation, infection, complications of sedation and the possibility I could miss something have been explained to the patient and she has indicated her consent by signing. Propofol was slowly titrated before and during this procedure for patient comfort by the anesthesia service. The Olympus upper videoscope was introduced through the upper esophageal sphincter and advanced under direct visualization to as far as the scope could go in the duodenum, which I believe was to the distal third portion of the duodenum. Findings are noted on withdrawal of the scope, the third portion of the duodenum appears normal. The proximal second portion of the duodenum is erythematous and edematous, as is the distal duodenal bulb and forceps were used to obtain biopsies x 2 from this area for histopathology. Good hemostasis was noted after those biopsies. The duodenal bulb proximally appears more normal. In the stomach, we have a mild diffuse patchy hemorrhagic gastritis. Biopsies were obtained from 2 places in the stomach for histopathology. Retroflex view did not reveal any hiatal hernia. The scope was withdrawn to the esophagus. There was denuding of the lining of the esophagus with the most superficial mucosal layer missing in some places, the etiology of this is not clear. This is primarily in the distal esophagus, but also in the middle esophagus. The scope was withdrawn. The patient went to the recovery area in stable condition. She tolerated the procedure well. IMPRESSION: 1. Edema and erythema of the first and second portions of the duodenum, biopsies taken as above. 2. Patchy hemorrhagic gastritis, biopsied x 2 for histopathology. 3. 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 [facility] [address] [place] [address] PROCEDURE REPORT Name: ZOYA ROY Room #: 218-P ADM IN M.R.#: [id number] Admission: 08/25/18 ������������������ Attend Phys: Donato Dietz MD Discharge: ������������������ Date of : 74 Report #: [id number] RECOMMENDATIONS: To await the path report. Start her on proton pump inhibitors. Thank you for allowing us to participate in her care. ��������������������������������������������� <ELECTRONICALLY SIGNED> ���������������������������������������� By: Lindsay Raza DO ��������������������������������������������� 08/30/18 1102 1500 0743 Lindsay Raza DO /betzy
[2018-08-30 12:43] VITALS: BP 107/72
--- NOTE | 2018-08-30 14:06 | PATH ---
[facility] [place] [address] PATHOLOGY RPT PROCEDURE Name: ZOYA ROY Room #: 218-P ADM IN M.R.#: [id number] ������������������ Admission: 08/25/18 ������������������ Date of : 74 Discharge: Report #: [id number] Path Case #: [id number] [facility] Accession Number: [id number] . 01 Material submitted: . PART A: BX DUODENITIS PART B: BX GASTRITIS R/O H-PYLORI . 01 Clinical history: . Pre-OP DX: Duodenitis Post-OP DX: Duodenitis, esophagitis, please refer to requisition for additional information . 02 Diagnosis: A. Small bowel mucosa, duodenitis, endoscopic biopsy: - Fundic-type metaplasia associated with moderate acute and chronic nonspecific duodenitis, compatible with peptic duodenitis. - Subtle villous blunting present, compatible with changes associated with duodenitis. - No increase in intraepithelial lymphocytes. . B. Gastric mucosa, gastritis rule out H. pylori, endoscopic biopsy: - Mild reactive gastropathy. - Negative for intestinal metaplasia or atrophy. - Negative for Helicobacter pylori (properly controlled immunohistochemical stain performed). . (IUV:alli; 08/30/2018) MBR/08/30/2018 . 02 Electronically signed: . Flora Donato MD, Pathologist NPI- [id number] . 01 Gross description: . A. Received in formalin labeled "Zoya Roy, BX duodenitis," are 2 segments of long soft tissue measuring 0.7 x 0.2 x 0.2 cm in aggregate dimensions and ranging from 0.3 to 0.4 cm in maximum dimension. The specimen is submitted entirely in cassette A1. . B. Received in formalin labeled "Zoya Roy, NELLY gastritis, rule out H. pylori," are 2 segments of long soft tissue measuring 0.8 x 0.4 x 0.3 cm in aggregate dimensions and ranging from 0.3 to 0.5 cm in maximum dimension. The specimen is submitted entirely in cassette B1. (TSD; 08/29/2018) TOB/TOB . [address] [place] [address] PATHOLOGY RPT PROCEDURE Name: ZOYA ROY Room #: 218-P ADM IN M.R.#: [id number] ������������������ Admission: 08/25/18 ������������������ Date of : 74 Discharge: Report #: [id number] Path Case #: [id number] Pathologist provided ICD-10: K29.80, K31.9 . 02 CPT . 484059, 984633, W60808 Specimen Comment: A courtesy copy of this report has been sent to Specimen Comment: [phone], , . Specimen Comment: Report sent to ,DR HENDERSON / DR GUILLAUME Performed at: [address] [facility], [place] [address] MD Sarkis Smith MD Phone: [phone] Performed at: [address] [id number] MD Flora Donato MD Phone: [phone]
[2018-08-30 16:00] VITALS: BP 116/78
--- NOTE | 2018-08-30 17:55 | NUR ---
ASSUMED CARE OF PT AT SHIFT CHANGE. ASSESSMENT CHARTED. MEDS GIVEN PER JUL. PT ALERT AND ORIENTED, VSS, C/O ABD PAIN- MANAGED WITH PO AND IV PAIN MEDS. O2 SATS WNL ON ROOM AIR, NO S/SX OF CARD OR RESP DISTRESS NOTED. PT C/O LOOSE DIARRHEA, GI AWARE, ORDERS RECEIVED FOR STOOL SAMPLE. PT IN ISO FOR C. DIFF PRECAUTIONS. PT UP TO BATHROOM SBA, VOIDS ADEQUATELY. APPETITE BETTER TODAY. DENIES CONCERNS AT THIS TIME. WILL CONT TO MONITOR AND FOLLOW POC.
[2018-08-30 19:50] VITALS: BP 130/83
[2018-08-31 05:42] VITALS: BP 128/76
--- NOTE | 2018-08-31 05:49 | NUR ---
PT. ON BED DURING REPORT; ST. NOT ABLE TO HAVE A BM; DRUNK PROOM JUICE IN ORDER TO HAVE A BM; AROUND 1999 PT. CALLED DUE TO BM; STOOL SAMPLE COLLECTED; HS MEDICATION GIVEN; AT 2230 PT. REQUESTED PAIN MEDICATION; PRN PAIN MEDICATION GIVEN; ABLE TO REST THROUGH THE NIGHT; C/O PAIN EARLY ON THE MORNING; PRN PAIN MEDICATION GIVEN; PAIN 8/10; ASSESSMENT CHARGED; FOLLOWING POC; WILL PASS ON REPORT.
[2018-08-31 10:17] VITALS: BP 128/76
--- NOTE | 2018-08-31 10:18 | NUR ---
DC HOME TODAY. NO CM INTERVENTIONS INDICATED. PT TO F/U WITH HER [facility] CASE [facility].
[2018-08-31 14:11] VITALS: BP 128/76
--- NOTE | 2018-08-31 14:50 | NUR ---
RECIEVED REPORT AT 0720. IN BED, NO COMPLAINTS. CDIFF STOOL RESULT IS NEGATIVE. DISCHARGE HOME IN STABLE CONDITION WITH INSTRUCTIONS AND 1 NEW PRESCRIPTION.
== END 2018-08-31 15:15 | disposition home or self-care (01) | DRG 377 ==
LOC: ER 22:17 → 2N 08-25 02:00 → EROBS 08-25 02:00 → 2N 08-25 04:10 → ENTRNSPT 08-27 12:48 → EDTRNSPTSTS 08-27 12:53 → DELTRNSPT 08-27 12:58 → ENTRNSPT 08-31 14:46 → EDTRNSPTSTS 08-31 14:48 → 2N 08-31 15:15
PROVIDERS: Nurse Practitioner Family; ADMIT Hospitalist
PROC: 0DB98ZX Excision of Duodenum, Via Natural or Artificial Opening Endoscopic, Diagnostic (ICD-10-PCS; principal; 2018-08-29)
PROC: 0DB68ZX Excision of Stomach, Via Natural or Artificial Opening Endoscopic, Diagnostic (ICD-10-PCS; principal; 2018-08-29)
DX: K29.71 Gastritis, unspecified, with bleeding (principal); K85.20 Alcohol induced acute pancreatitis without necrosis or infection; N39.0 Urinary tract infection, site not specified; K86.0 Alcohol-induced chronic pancreatitis; J45.909 Unspecified asthma, uncomplicated; I10 Essential (primary) hypertension; E78.5 Hyperlipidemia, unspecified; F31.9 Bipolar disorder, unspecified; E87.6 Hypokalemia; F17.210 Nicotine dependence, cigarettes, uncomplicated; K31.9 Disease of stomach and duodenum, unspecified; K52.9 Noninfective gastroenteritis and colitis, unspecified; K29.80 Duodenitis without bleeding; Z90.49 Acquired absence of other specified parts of digestive tract; Z88.0 Allergy status to penicillin; Z71.41 Alcohol abuse counseling and surveillance of alcoholic; Z71.6 Tobacco abuse counseling; Z79.899 Other long term (current) drug therapy
CPT/HCPCS: 10194; 62110; 62900; 70005

== ENCOUNTER 2018-09-05 15:44 | Inpatient (IN) | payer OTHER ==
[~2018-09-05] VITALS: Ht 152.4 cm; Wt 68.0 kg
[2018-09-05 15:44] VITALS: BP 119/83
[~2018-09-05 15:44] MED LIST changes: +NORCO 5-325 TA1 EACH PO
[2018-09-05 16:19] LABS: URINE BILIRUBIN NEGATIVE (Negative); URINE BLOOD NEGATIVE (Negative); URINE CLARITY CLEAR; URINE COLOR YELLOW; URINE GLUCOSE-RANDOM* NEGATIVE (Negative); URINE KETONES TRACE (Negative); URINE LEUKOCYTES NEGATIVE (Negative); URINE NITRITE NEGATIVE (Negative); URINE PROTEIN (DIPSTICK) 1+ (Negative); URINE SPECIFIC GRAVITY <= 1.005 (1.005-1.035); URINE UROBILINOGEN 0.2 E.U./dl (0.2-1.0)
[2018-09-05 16:19] LABS: ABSOLUTE NEUTROPHILS 4.2 thou/uL (1.4-8.2); BASOPHILS 1.1 % (0.0-2.0); HEMATOCRIT 44.7 % (37.0-47.0); HEMOGLOBIN 15.2 gm/dL (12.0-15.0); LYMPHOCYTES 34.7 % (24.0-44.0); MCH 32.2 pg (26.0-34.0); MCHC 34.1 g/dL (28.0-37.0); MCV 94.3 fL (80.0-100.0); MONOCYTES 8.2 % (1.0-8.0); RBC 4.73 mil/uL (4.20-5.00); WBC 7.7 thou/uL (4.0-11.0)
[2018-09-05 16:23] LABS: ANION GAP 17 mmol/L (7-16); BUN 9 mg/dL (7-18); CALCIUM 9.9 mg/dL (8.5-10.1); CHLORIDE 100 mmol/L (98-107); CO2 20 mmol/L (21-32); CREATININE 0.7 mg/dL (0.6-1.0); GLUCOSE 114 mg/dL (74-106); POTASSIUM 3.2 mmol/L (3.5-5.1); SODIUM 137 mmol/L (136-145)
[2018-09-05 16:31] LABS: ALBUMIN 4.5 g/dL (3.4-5.0); LIPASE 75 U/L (73-393); SGOT 53 U/L (15-37); SGPT 37 U/L (30-65); TOTAL BILIRUBIN 0.6 mg/dL (<0.1-1.0); TOTAL PROTEIN 8.6 g/dL (6.4-8.2); TROPONIN-I <0.06 ng/mL (<0.06)
[2018-09-05 16:32] LABS: APTT 27.8 Seconds (24.5-32.8)
[2018-09-05 16:40] LABS: PLATELET COUNT 437 thou/uL (150-400)
[2018-09-05 18:29] VITALS: BP 134/92
[2018-09-05 18:42] VITALS: BP 131/79
[2018-09-05 20:22] VITALS: BP 123/77
[2018-09-06 03:30] VITALS: BP 114/80
[2018-09-06 05:15] LABS: HEMATOCRIT 38.7 % (37.0-47.0); MCH 31.7 pg (26.0-34.0); MCV 96.1 fL (80.0-100.0); RBC 4.02 mil/uL (4.20-5.00); RDW 16.5 % (10.5-14.5)
[2018-09-06 05:19] LABS: CREATININE 0.6 mg/dL (0.6-1.0); POTASSIUM 3.1 mmol/L (3.5-5.1)
[2018-09-06 05:20] LABS: HEMOGLOBIN 12.8 gm/dL (12.0-15.0)
[2018-09-06 07:31] VITALS: BP 108/71
--- NOTE | 2018-09-06 09:21 | EKG ---
[address] [place] [address] ELECTROCARDIOGRAM REPORT Name: ZOYA ROY Room #: 459-P ADM IN M.R.#: [id number] ������������������ Admission: 09/05/18 ������������������ Attend Phys: Herrera Aviles MD Discharge: ������������������ Date of : 74 Report #: [id number] ����������������������������������������������������������������� [id number] THIS REPORT FOR: //name// [facility] ED Test Date: 2018-09-05 Test Time: 16:20:26 Pat Name: ZOYA ROY Department: Room: 45 Gender: F Film Booker: TITA : 1970 Requested By: Mikaela Rehman Order Number: [id number] MD: Robbie Melton Measurements Intervals [place] Rate: 89 P: 39 MN: 124 QRS: 5 QRSD: 106 T: 5 QT: 419 QTc: 510 Interpretive Statements Sinus rhythm RSR' in V1 or V2, right VCD Nonspecific ST and T wave abnormality Borderline prolonged QT interval Compared to ECG 04/14/2018 19:18:21 ST and T wave abnormality is now present Electronically Signed On 09-06-2018 9:21:16 CDT by Robbie Melton [email or web address] ��������������������������������������������� <ELECTRONICALLY SIGNED> ���������������������������������������� By: Robbie Melton MD, [facility] ��������������������������������������������� 09/06/18 0921 1620 1620 Robbie Melton MD, [facility] /EPI
[2018-09-06 10:52] LABS: AMP/METHAMP Negative (Negative); BARBITURATES Negative (Negative); BENZODIAZEPINES Negative (Negative); COCAINE Negative (Negative); METHADONE Negative (Negative); OPIATES Negative (Negative); PCP Negative (Negative)
[2018-09-06 13:55] VITALS: BP 124/77
--- NOTE | 2018-09-06 14:01 | NUR ---
ASSUMED CARE AT 0700, SHIFT ASSESSMENT DONE, MEDS GIVEN, VSS. REPORTED PAIN, PRN PAIN AND NAUSEA MEDS GIVEN. PATIENT REPORTING FREQUENT LOOSE STOOL. CDIFF IS PENDING. REPORTED ANXIETY, PRN ANXIETY MED GIVEN. UP AD CARMINA, CALLS APPROPRIATELY. WILL CONTINUE TO ASSESS AND ASSIST WITH ADLs NEEDED.
--- NOTE | 2018-09-06 15:01 | NUR ---
PT ADMITTED RELATED TO ABDOMINAL PAIN. CM REVIEWED CHART AND SPOKE WITH CARE TEAM. CM MET WITH PT AT BEDSIDE THIS DAY. PT IS A&0 X4. CM ROLE INTRODUCED. PT INDICATED THAT SHE HAD BEEN STAYING IN A HOUSE WITH HER MOTHER AND UNCLE MANAGER STUDY. PT INDICATED THAT IF ALL GOES WELL SHE PLANS TO MOVE INTO HER OWN APARTMENT NEXT WEEK. PT INDICATED SHE HAD BEEN INDEPENDET WITH GAIT AND ADLS MANAGER STUDY. PT INDICATED THAT SHE PLANS TO RETURN TO THE HOUSE WITH HER MOTHER AND UNCLE ONCE MEDICALLY STABLE. CM TO FOLLOW INDICATED WITH DC PLANNING.
--- NOTE | 2018-09-06 18:37 | NUR ---
PATIENT WANTED HER HOME MEDS STARTED. DR LEMA WAS PAGED AND AIRMAILED FOR TIMES WITH NO RESPONSE. TRIED TO CALL STAMP CLERK ANTONIO BUT NO RESPONSE WELL. PATIENT BROUGHT SOME HOME MEDS FROM HOME. WILL ASK TO BRING IT BACK HOME DR LEMA HAS NOT STARTED ANY OF HER HOME MEDS. WILL CONTINUE TO ASSESS AND ASSIST WITH ADLs NEEDED.
[2018-09-06 19:10] VITALS: BP 117/85
[2018-09-07 03:00] VITALS: BP 120/66
[2018-09-07 04:44] LABS: HEMATOCRIT 37.3 % (37.0-47.0); HEMOGLOBIN 12.3 gm/dL (12.0-15.0); MCH 32.1 pg (26.0-34.0); MCV 97.3 fL (80.0-100.0); RBC 3.84 mil/uL (4.20-5.00); RDW 17.1 % (10.5-14.5); WBC 5.6 thou/uL (4.0-11.0)
[2018-09-07 05:00] LABS: ALBUMIN 3.2 g/dL (3.4-5.0); CALCIUM 8.5 mg/dL (8.5-10.1); CREATININE 0.5 mg/dL (0.6-1.0); MAGNESIUM 1.8 mg/dL (1.8-2.4); POTASSIUM 3.8 mmol/L (3.5-5.1); TOTAL BILIRUBIN 0.3 mg/dL (<0.1-1.0); TOTAL PROTEIN 6.1 g/dL (6.4-8.2)
--- NOTE | 2018-09-07 07:36 | NUR ---
PATIENT SLEPT PART OF THE NIGHT. PT REPORTED SOME PAIN EHICH WAS TREATED. PATIENT IS AO X4 AND CALLS FOR HELP ACCORDINGLY. PT IS UP AD CARMINA AND HAS A STEADY GAIT. PATIENT DID REPORT HAVING SOMR NIGHTMARES. PT IS PROGRESSING TOWARDS DC GOALS.
[2018-09-07 09:29] VITALS: BP 121/79
[2018-09-07 14:52] VITALS: BP 99/60
--- NOTE | 2018-09-07 14:52 | NUR ---
CARE TEAM INDICATED PT WILL LIKELY BE MEDICALLY STABLE TO DC HOME THIS WEEKEND. PT HAS SERVICES AND SUPPORTES THROUGH [employer] AND WILL FOLLOW UP WITH THEM UPON DC. IT IS ANTICPATED THAT PT WILL HAVE NO NEEDS UPON DC. CM ABLE TO ASSIST SHOULD ANY DC NEEDS ARISE.
--- NOTE | 2018-09-07 18:31 | NUR ---
PT A&OX4, VSS, C/O OF ABD PAIN AND BEING MANAGED WITH MORPHINE. PT HAS BEEN UP AD CARMINA. NO N/V/D, TOLERATING SOFT DIET. WILL CONTINUE TO MONITOR.
[2018-09-07 20:59] VITALS: BP 117/77
--- NOTE | 2018-09-08 01:49 | NUR ---
PT SLEPT ON AND OFF DURING THE NIGHT PT USED CALL LIGHT EFFECTIVELY PT ABLE TO AMBULATE TO BATHROOM WITH STANDBY ASSIST.
[2018-09-08 04:43] VITALS: BP 124/78
[2018-09-08 08:00] VITALS: BP 147/92
[2018-09-08] MEDS ORDERED: NORCO 5-325 TA1 EACH PO (09:44)
[2018-09-08] MEDS ORDERED: LOPERAMIDE 2 MG2 M1 PO (09:49)
[2018-09-08 12:11] VITALS: BP 147/92
--- NOTE | 2018-09-08 13:53 | NUR ---
PT DISCHARGED HOME WITH MOTHER. PT A&OX4, VSS WITH C/O PAIN IN ABD, GENERAL AT 7. PAIN MANAGED WITH MORPHINE. PT VERBALIZES UNDERSTANDING OF PRESCIPTIONS AND DISCHARGE PAPERWORK. ALL BELONGINGS WITH PATIENT INCLUDING HOME MEDICATION SHE BRUNG IN.
[2018-09-08 15:32] VITALS: BP 147/92
== END 2018-09-08 15:00 | disposition home or self-care (01) | DRG 392 ==
LOC: ER 15:44 → 4W 18:15 → EROBS 18:15 → 4W 18:47
PROVIDERS: Nurse Practitioner Family; Physician Assistant; ADMIT Internal Medicine
DX: K52.9 Noninfective gastroenteritis and colitis, unspecified (principal); E86.0 Dehydration; I10 Essential (primary) hypertension; E78.5 Hyperlipidemia, unspecified; F10.10 Alcohol abuse, uncomplicated; J45.909 Unspecified asthma, uncomplicated; F17.210 Nicotine dependence, cigarettes, uncomplicated; F41.9 Anxiety disorder, unspecified; F31.9 Bipolar disorder, unspecified; F43.10 Post-traumatic stress disorder, unspecified; K29.80 Duodenitis without bleeding; K76.0 Fatty (change of) liver, not elsewhere classified; R51 Headache; Z88.1 Allergy status to other antibiotic agents; Z79.899 Other long term (current) drug therapy; Z87.11 Personal history of peptic ulcer disease; Z90.49 Acquired absence of other specified parts of digestive tract; Z98.891 History of uterine scar from previous surgery
CPT/HCPCS: 10040

== ENCOUNTER 2018-10-04 11:39 | Inpatient (IN) | payer OTHER ==
[~2018-10-04] VITALS: Ht 157.5 cm; Wt 61.2 kg
[2018-10-04 11:39] VITALS: BP 137/85
[~2018-10-04 11:39] MED LIST changes: +CLONAZEPAM 0.50.5 M1 PO; -CLONAZEPAM 1 MG1 M1 PO; +CREON DR 36,001 EACH PO; -CREON DR 6,0001 EACH PO; +LOPERAMIDE 2 MG2 M1 PO
[2018-10-04 12:49] LABS: URINE BILIRUBIN NEGATIVE (Negative); URINE BLOOD NEGATIVE (Negative); URINE CLARITY CLEAR; URINE COLOR YELLOW; URINE GLUCOSE-RANDOM* NEGATIVE (Negative); URINE KETONES NEGATIVE (Negative); URINE LEUKOCYTES-REFLEX NEGATIVE (Negative); URINE NITRITE-REFLEX NEGATIVE (Negative); URINE PROTEIN (DIPSTICK) NEGATIVE (Negative); URINE SPECIFIC GRAVITY <= 1.005 (1.005-1.035); URINE UROBILINOGEN 0.2 E.U./dl (0.2-1.0)
[2018-10-04 12:51] LABS: ABSOLUTE NEUTROPHILS 3.4 thou/uL (1.4-8.2); EOSINOPHILS 0.8 % (0.0-3.0); HEMATOCRIT 42.6 % (37.0-47.0); HEMOGLOBIN 14.5 gm/dL (12.0-15.0); LYMPHOCYTES 40.5 % (24.0-44.0); MCH 31.9 pg (26.0-34.0); MCV 93.9 fL (80.0-100.0); MONOCYTES 7.5 % (1.0-8.0); POLYS 50.2 % (36.0-66.0); RBC 4.53 mil/uL (4.20-5.00); RDW 15.1 % (10.5-14.5); WBC 6.8 thou/uL (4.0-11.0)
[2018-10-04 13:02] LABS: CALCIUM 8.9 mg/dL (8.5-10.1); CREATININE 0.5 mg/dL (0.6-1.0); POTASSIUM 3.2 mmol/L (3.5-5.1)
[2018-10-04] MEDS ORDERED: CREON DR 12,001 EACH PO (13:07)
[2018-10-04 13:08] LABS: ALBUMIN 3.9 g/dL (3.4-5.0); TOTAL BILIRUBIN 0.4 mg/dL (<0.1-1.0); TOTAL PROTEIN 7.5 g/dL (6.4-8.2)
[2018-10-04] MEDS ORDERED: TYLENOL SINUS1 EAC5 PO (13:08)
--- NOTE | 2018-10-04 13:10 | NUR ---
PT REPORTS THAT SHE THINKS SHE NEEDS TO BE CHECKED FOR POSION. PT REPORTS THAT THERE IS NO LIGHTS OR ELECTRICITY AT HER HOME.
[2018-10-04 13:54] LABS: PLATELET COUNT 219 thou/uL (150-400)
[2018-10-04 17:45] VITALS: BP 143/100
--- NOTE | 2018-10-04 18:37 | NUR ---
REC REPORT ON PT FROM ED AT SHIFT CHANGE, WILL HELP SETTLE HER IN ONCE SHE ARRIVES AND IN THE INTERIM GIVE REPORT TO NIGHT STAFF
[2018-10-04 18:50] VITALS: BP 141/100
[2018-10-04 20:00] VITALS: BP 122/83
--- NOTE | 2018-10-04 23:11 | NUR ---
PATIENT ARRIVED IN THE ROOM ABOUT 1900. SHE IS VERY DEMANDING AT TIME OF CONTACT WITH NURSE. ALL HOME MEDICATIONS ORDERED PER HOME MEDICATION LIST. RECIEVED ORDER FROM [employer] PR[employer] SUPERVISORBrigitte STUBBS IT IS OK TO RESTART HER HOME MEDICATIONS, (SOME OF WHICH ARE PSYCHE MEDICATIONS). ORIENTED TO ROOM AND SURROUNDINGS. IV FLUOIDS STARTED ORDERED. HER BED ALARM IS SET AND SHE HAS BEEN INFORMED THAT SHE IS A HIGH FALL RISK. ALL ADMISSION PAPERWORK SIGNED. SHE HAS ABDOMINAL PAIN WHICH IS HAS PERSISTED FOR THAT PAST DAY PRIOR TO ADMISSION. SHE TELLS ME THAT SHE AWOKE WITH THE ABDOMINAL PAIN THIS PAST MORNING 10/04/18 AND IT HAS PERSISTED ALL DAY. HE LAST DRINK WAS 0500 10/04/18. CAREPLAN STARTED
[2018-10-04 23:50] VITALS: BP 118/78
[2018-10-05 03:20] VITALS: BP 107/86
[2018-10-05 05:12] LABS: CALCIUM 8.6 mg/dL (8.5-10.1); CREATININE 0.4 mg/dL (0.6-1.0)
[2018-10-05 05:24] LABS: POTASSIUM 4.8 mmol/L (3.5-5.1)
[2018-10-05 07:45] VITALS: BP 106/67
[2018-10-05] MEDS ORDERED: CREON DR 36,001 EACH PO (10:43)
[2018-10-05] MEDS ORDERED: CLONAZEPAM 0.50.5 M1 PO (10:45)
[2018-10-05] MEDS ORDERED: NEURONTIN 400M400 M2 PO (10:46)
[2018-10-05] MEDS ORDERED: PRAZOSIN HCL2 MG PO (10:48)
[2018-10-05] MEDS ORDERED: FLONASE 0.05%50 MCG NASAL (10:48)
[2018-10-05 15:32] VITALS: BP 111/68
--- NOTE | 2018-10-05 15:34 | NUR ---
INITIAL ASSESSMENT: Received consult for discharge planning. REYNALDO reviewed chart and spoke with nursing and attending physician. Pt was admitted from home due pancreatitis. Pt with hx of ETOH abuse. Pt with several hospital stays within the past month. Psych consult ordered. REYNALDO met with pt at bedside. Introduced role of SW. Pt is alert/orientated x 4. Pt reports she has been living with her family, but was planning to move into an apt today. Pt will be living in a 3rd floor apt. There is an elevator. Prior to admission, pt was independent with ADLs. No use of DME. No hx of HH services or SNF/Rehab placement. Pt states she does go to [facility] and has a CM named Otilio. Pt's PCP is Dr. Tasneem Bernstein. Plan is for pt to return home when medically stable. REYNALDO is following to assist as needed with discharge planning.
--- NOTE | 2018-10-05 17:31 | NUR ---
Assumed care of patient at 0700. Vitals have been stable. Patient is alert and oriented x4, cooperative with cares. Complaints of "excruciating" abdominal pain, rated 10/10, radiating to back. Partially controlled with PRN medications. Patient dozing on and off throughout day. Complaints of being very hungry and thirsty; allowed small sips of water with PO meds. Otherwise, NPO. Explained to patient reasoning behind NPO status due to pancreatits and lab work; explained eating and drinking will worsen pain and nausea. Verbalizes understanding but continues to need reinforcement. CIWAs ordered for alcohol withdrawal; currently scoring 2-3. Fall precautions in place due to CIWA and abdominal pain; patient calls appropriately. Up with SBA to bathroom. Voiding adequately. Attempting to progress towards POC. Will continue to monitor.
[2018-10-05 20:10] VITALS: BP 110/82
[2018-10-06 04:25] VITALS: BP 122/78
[2018-10-06 05:34] LABS: ALBUMIN 2.9 g/dL (3.4-5.0); CALCIUM 7.9 mg/dL (8.5-10.1); CREATININE 0.4 mg/dL (0.6-1.0); MAGNESIUM 1.3 mg/dL (1.8-2.4); POTASSIUM 3.7 mmol/L (3.5-5.1); TOTAL PROTEIN 5.5 g/dL (6.4-8.2)
[2018-10-06 07:28] VITALS: BP 122/87
--- NOTE | 2018-10-06 14:01 | NUR ---
Assumed care of patient at 0700. Vitals have been stable. Patient alert and oriented x4. CIWAs ordered q 4 hours - scoring low on scale; occasional nausea, sweating and slight tremors. Complaints of abdominal pain, but improved compared to yesterday. Alternating between PRN Morphine and [place] to treat pain. Advanced to clear liquid diet; tolerating well so far. States still feels hungry. Loose stools today. Up with SBA to bathroom. Fall precautions in place. Slowly progressing towards POC. Will continue to monitor.
[2018-10-06 15:16] VITALS: BP 119/86
[2018-10-06 21:30] VITALS: BP 123/64; BP 143/94
[2018-10-07 05:25] LABS: ALBUMIN 2.8 g/dL (3.4-5.0); CALCIUM 8.2 mg/dL (8.5-10.1); CREATININE 0.3 mg/dL (0.6-1.0); POTASSIUM 3.7 mmol/L (3.5-5.1); TOTAL BILIRUBIN 0.7 mg/dL (<0.1-1.0); TOTAL PROTEIN 5.3 g/dL (6.4-8.2)
[2018-10-07 05:30] VITALS: BP 139/93
--- NOTE | 2018-10-07 08:04 | NUR ---
ASSUMED CARE OF PT AT 1900, A&Ox4. VS STABLE. MANY C/O PAIN OR NAUSEA OR HAND HURTING. REQUESTED PAIN MEDS Q2HRS. DISCUSSED HOLDING FLUID IF SHE HAS A IN A LOT OF PAIN. SHE DIDN'T WANT TO STOP ORAL FLUID INTAKE SO SHE JUST REQUESTED MORPHINE IV Q 4 HRS W/ OTHER MEDICATIONS. UP TO BR Q 30 MINUTES. STATED SHE USUALLY GOES TO THE BATHROOM A LOT AT HOME AND SINCE SHE HAS FLUIDS RUNNING TOO SHE NEEDS TO GO OFTEN. C/O PAIN IN L HAND SEVERAL TIMES, ICE PACK GIVEN AND CURRENTLY MONITORING. SLOW PROGRESS TOWARDS POC.
[2018-10-07 08:10] VITALS: BP 133/93
[2018-10-07 08:14] VITALS: BP 133/93
[2018-10-07 11:41] VITALS: BP 115/79
--- NOTE | 2018-10-07 16:19 | NUR ---
Assumed care of patient at 0700. Vitals have been stable. Alert and oriented x4. CIWAs as ordered. Complaints of abdominal pain. Explained to patient the importance of weaning off of narcotics, especially since patient is wanting to advance diet. Morphine given x1. [place] given as needed. Patient has decreased on narcotic use; states pain has improved today. Advanced to soft diet per Dr. Polanco and patient is tolerating well. Some mild nausea, but no vomiting. Up ad amie in room, steady gait. Agrees to call if feeling weak or dizzy for assistance. Shower today. Complaints of some left wrist pain and swelling; xray ordered and negative for anything acute. Progressing towards POC. Will continue to monitor.
[2018-10-07 17:19] VITALS: BP 141/81
[2018-10-07 22:20] VITALS: BP 149/95
--- NOTE | 2018-10-07 22:26 | NUR ---
PT AMBULATING INDEPENDENTLY AND IS TOLERATING WELL. LORTAB PROVIDING PAIN RELIEF. ZOFRAN NAUSEA RELIEF. TRANSFERRED TO VIA WHEELCHAIR RM 427 AT 2225 WITH STAFF.
--- NOTE | 2018-10-08 04:05 | NUR ---
Pt came to unit from 3W approx 2225. ETOH withdrawal. CIWA q4h. Pt states she is now having nightmares and cold sweats. Prn pain medications administered for generalized abdominal pain. Call light within reach. Will continue to monitor.
[2018-10-08 05:40] VITALS: BP 121/80
[2018-10-08 07:50] VITALS: BP 128/90
[2018-10-08 09:20] LABS: CALCIUM 9.2 mg/dL (8.5-10.1); CREATININE 0.5 mg/dL (0.6-1.0)
[2018-10-08 09:23] LABS: ALBUMIN 3.2 g/dL (3.4-5.0); MAGNESIUM 1.7 mg/dL (1.8-2.4); TOTAL BILIRUBIN 0.3 mg/dL (<0.1-1.0); TOTAL PROTEIN 6.8 g/dL (6.4-8.2)
--- NOTE | 2018-10-08 09:28 | NUR ---
PT A&OX4, AMBULATES SELF IN ROOM. IV INTACT IN R AC. PT HAVING NAUSEA AND PAIN THIS AM. TOLERATING PO WELL. WILL CONT POC.
--- NOTE | 2018-10-08 11:22 | NUR ---
Assess due to dx of pancreatitis. Hx etoh abuse. Diet has been able to advance tolerating fair to well, lipase now wnl. Ambulating. Pt hoping to discharge today. Recommend continue and thiamine supplementation. Low nutrition risk
[2018-10-08] MEDS ORDERED: ZOFRAN ODT4 MG DISSOLVE (12:17)
[2018-10-08 13:57] VITALS: BP 128/90
--- NOTE | 2018-10-08 14:39 | NUR ---
DC ORDERS RECEIVED. IV REMOVED FROM R AC. DC INSTRUCTIONS, F/U APPOINTMENT AND SCRIPTS REVEIWED WITH PT. PT WHEELED BY W/C BY VOLUNTEER TO MAIN ENTRANCE.
== END 2018-10-08 15:08 | disposition home or self-care (01) | DRG 440 ==
LOC: ER 11:39 → 3W 16:34 → EROBS 16:34 → 3W 18:50 → 4E 10-07 22:42
PROVIDERS: Emergency Medicine; Internal Medicine Geriatric Medicine; ADMIT Hospitalist
DX: K85.20 Alcohol induced acute pancreatitis without necrosis or infection (principal); F31.9 Bipolar disorder, unspecified; F41.9 Anxiety disorder, unspecified; F43.10 Post-traumatic stress disorder, unspecified; F17.210 Nicotine dependence, cigarettes, uncomplicated; K86.0 Alcohol-induced chronic pancreatitis; E83.42 Hypomagnesemia; F10.10 Alcohol abuse, uncomplicated; Z90.89 Acquired absence of other organs; Z90.49 Acquired absence of other specified parts of digestive tract; Z79.899 Other long term (current) drug therapy; Z98.891 History of uterine scar from previous surgery; Z88.1 Allergy status to other antibiotic agents
CPT/HCPCS: 10080; 10084

== ENCOUNTER 2018-11-21 13:22 | Emergency (ER) | payer OTHER ==
[~2018-11-21] VITALS: Ht 157.5 cm; Wt 61.2 kg
[~2018-11-21 13:22] MED LIST changes: +CREON DR 12,001 EACH PO; +FLONASE 0.05%50 MCG NASAL; +NEURONTIN 400M400 M2 PO; +TYLENOL SINUS1 EAC5 PO; +ZOFRAN ODT4 MG DISSOLVE
[2018-11-21 13:41] LABS: URINE BILIRUBIN NEGATIVE (Negative); URINE BLOOD NEGATIVE (Negative); URINE CLARITY CLEAR; URINE COLOR YELLOW; URINE GLUCOSE-RANDOM* NEGATIVE (Negative); URINE KETONES NEGATIVE (Negative); URINE LEUKOCYTES-REFLEX 2+ (Negative); URINE NITRITE-REFLEX NEGATIVE (Negative); URINE PROTEIN (DIPSTICK) NEGATIVE (Negative)
[2018-11-21 13:50] LABS: CASTS None Seen /LPF (None Seen); CRYSTALS None Seen /LPF (None Seen); SQUAMOUS 0-3 Few /LPF (0-3); URINE RBC None Seen /HPF (0-2)
[2018-11-21] MEDS ORDERED: KEFLEX500 M1 PO (15:12)
[2018-11-21 15:25] VITALS: BP 114/87
== END 2018-11-21 15:20 | disposition home or self-care (01) ==
LOC: ER 13:22
PROVIDERS: Physician Assistant
DX: N39.0 Urinary tract infection, site not specified (principal); B95.2 Enterococcus as the cause of diseases classified elsewhere; M79.672 Pain in left foot; R22.42 Localized swelling, mass and lump, left lower limb; F31.9 Bipolar disorder, unspecified; F41.9 Anxiety disorder, unspecified; F17.210 Nicotine dependence, cigarettes, uncomplicated; Z88.1 Allergy status to other antibiotic agents

== ENCOUNTER 2018-12-14 11:01 | Emergency (ER) | payer OTHER ==
[~2018-12-14] VITALS: Ht 154.9 cm; Wt 62.1 kg
[2018-12-14] MEDS ORDERED: NAPROSYN500 MG PO (11:19)
[2018-12-14] MEDS ORDERED: PENICILLIN V P500 MG PO (11:19)
[2018-12-14] MEDS ORDERED: ULTRAM 50MG TAB50 MG PO (11:27)
[2018-12-14 11:31] VITALS: BP 127/92
== END 2018-12-14 11:29 | disposition home or self-care (01) ==
LOC: ER 11:01
DX: K02.9 Dental caries, unspecified (principal); F17.210 Nicotine dependence, cigarettes, uncomplicated; F31.9 Bipolar disorder, unspecified; F41.9 Anxiety disorder, unspecified; K86.1 Other chronic pancreatitis; Z88.1 Allergy status to other antibiotic agents

== ENCOUNTER 2019-02-23 15:09 | Inpatient (IN) | payer OTHER ==
[~2019-02-23] VITALS: Ht 157.5 cm; Wt 60.8 kg
[~2019-02-23 15:09] MED LIST changes: +PENICILLIN V P500 MG PO; +ULTRAM 50MG TAB50 MG PO
[2019-02-23 15:10] VITALS: BP 122/77
[2019-02-23 15:30] LABS: URINE BLOOD NEGATIVE (Negative); URINE COLOR YELLOW; URINE GLUCOSE-RANDOM* NEGATIVE (Negative); URINE KETONES TRACE (Negative); URINE NITRITE-REFLEX NEGATIVE (Negative); URINE PROTEIN (DIPSTICK) NEGATIVE (Negative); URINE SPECIFIC GRAVITY 1.015 (1.005-1.035)
[2019-02-23 15:37] LABS: ICTOTEST (BILI CONFIRMATORY) Negative (Negative); URINE BILIRUBIN NEGATIVE (Negative); URINE CLARITY HAZY; URINE LEUKOCYTES-REFLEX 3+ (Negative)
[2019-02-23 15:49] LABS: ABSOLUTE NEUTROPHILS 4.9 thou/uL (1.4-8.2); BASOPHILS 0.8 % (0.0-2.0); HEMATOCRIT 41.5 % (37.0-47.0); LYMPHOCYTES 29.6 % (24.0-44.0); MCH 31.9 pg (26.0-34.0); MCHC 33.6 g/dL (28.0-37.0); MCV 94.8 fL (80.0-100.0); MONOCYTES 11.1 % (1.0-8.0); PLATELET COUNT 300 thou/uL (150-400); POLYS 57.5 % (36.0-66.0); RBC 4.38 mil/uL (4.20-5.00); RDW 15.7 % (10.5-14.5); WBC 8.6 thou/uL (4.0-11.0)
[2019-02-23 15:57] LABS: CALCIUM 9.9 mg/dL (8.5-10.1); CREATININE 0.5 mg/dL (0.6-1.0); POTASSIUM 4.5 mmol/L (3.5-5.1)
[2019-02-23 15:58] LABS: CASTS None Seen /LPF (None Seen); MUCUS >6 Heavy strn/LPF (None Seen); SQUAMOUS >10 Many /LPF (0-3)
[2019-02-23 15:59] LABS: URINE WBC-REFLEX 6-15 Few /HPF (0-5)
[2019-02-23 16:00] LABS: BACTERIA-REFLEX 1-9 Few /HPF (None Seen); CRYSTALS None Seen /LPF (None Seen); URINE RBC 0-2 Rare /HPF (0-2); WBC CLUMPS Occasional (None Seen)
[2019-02-23 16:03] LABS: ALBUMIN 3.4 g/dL (3.4-5.0); TOTAL BILIRUBIN 0.5 mg/dL (<0.1-1.0); TOTAL PROTEIN 7.3 g/dL (6.4-8.2)
[2019-02-23 16:56] VITALS: BP 128/80
[2019-02-23 18:33] VITALS: BP 103/77
[2019-02-23 19:45] VITALS: BP 104/73
--- NOTE | 2019-02-23 19:58 | NUR ---
Pt arrived to floor from emergency dept at 1725 in stable condition. Clear liq tray given for dinner and well tolerated.Pt requested for nictine patch,Dr Jhaveri notified and order noted.Report off to france ricketts.
--- NOTE | 2019-02-24 02:52 | NUR ---
ASSESSMENT COMPLETED. PT IS ALERT AND ORIENTED WITH ALOT OF ANXIETY.UP AD CARMINA. C/O GENERALISED ABDOMINAL PAIN. TOLERATING CLR LIQUIDS. AFEBRILE. ROOM AIR. PT IS RESTLESS. GIVEN SLEEPING MEDS BUT DID NOT SLEEP THAT WELL. IVF RUNNING.PT GETTING BOTH PO AND IV PAIN MEDS. PAIN RADIATING TO BACK.DIFLUCAN STARTED FOR C/O VAGINAL ITCHING. PT CALLS WITH NEEDS. WILL CONTINUE WITH POC TILL EOS.
[2019-02-24 04:30] VITALS: BP 110/77
[2019-02-24 05:07] LABS: ALBUMIN 2.6 g/dL (3.4-5.0); CREATININE 0.4 mg/dL (0.6-1.0); TOTAL BILIRUBIN 0.7 mg/dL (<0.1-1.0); TOTAL PROTEIN 5.8 g/dL (6.4-8.2)
[2019-02-24 05:09] LABS: CALCIUM 7.8 mg/dL (8.5-10.1); POTASSIUM 3.3 mmol/L (3.5-5.1)
[2019-02-24 09:10] VITALS: BP 98/64
[2019-02-24] MEDS ORDERED: ULTRAM 50MG TAB50 MG PO (09:40)
[2019-02-24] MEDS ORDERED: DOXYCYCLINE 10100 MG PO (09:41)
[2019-02-24] MEDS ORDERED: HYDROCORTISONE120 M1 TOP (09:41)
[2019-02-24 17:50] VITALS: BP 106/73
--- NOTE | 2019-02-24 18:30 | NUR ---
PT ASSESSED AT START OF SHIFT. STILL HAVING ABD PAIN AND NAUSEA. DIARRHEA STOOLS STOPPED THIS AM. PT TRIES DRINKING FLUIDS AND EATING SOME BUT BECOMING MORE NAUSEATED. IV ZOFRAN GIVEN. DR. WATSON UPDATED W/ PT CONDITION. PT STATES HER LAST ALCOHOLIC DRINK WAS ON MONDAY AND SHE HAD GONE THROUGH DETOX AT HOME.
[2019-02-24 19:46] VITALS: BP 119/77
--- NOTE | 2019-02-25 03:20 | NUR ---
ASSUMED CARE OF PT @1900 PT ASSESSED AT START OF SHIFT WITH C/O ABD PAIN. PAIN MEDS GIVEN. PT UP AD CARMINA TO THE BATHROOM. ANXIETY MEDS AND SLEEPING MEDS GIVEN PT CALLS AND LETS NEEDS KNOWN. ZOFRAN GIVEN FOR NAUSEA AND TURKEY TRAY SANDWICH GIVEN AND PT ANNA MEAL WELL. WILL CONT WITH POC TILL EOS
[2019-02-25 05:02] VITALS: BP 87/59
[2019-02-25 07:42] VITALS: BP 88/57
[2019-02-25 17:09] VITALS: BP 124/86
[2019-02-25 20:05] VITALS: BP 131/85
--- NOTE | 2019-02-25 20:18 | NUR ---
ASSUMED CARE AT 0700, SHIFT ASSESSMENT DONE, MEDS GIVEN, VSS. REPORTED PAIN, PRN PAIN MEDS GIVEN. REPORTED ITCHING, DR WATSON NOTIFIED, ORDER RECEIVED FOR PRN HYDROCORTISONE PESSARY, PT AWARE AND INFORMED TO ASK FOR IT. ON IV REGLAN, TOLEARING SOME DIET, STILL APPETITE IS POOR. WILL CONTINUE TO ASSESS AND ASSIST WITH ADLs NEEDED.
[2019-02-26 04:15] VITALS: BP 107/73
[2019-02-26 05:29] LABS: CALCIUM 8.8 mg/dL (8.5-10.1); CREATININE 0.5 mg/dL (0.6-1.0); POTASSIUM 3.9 mmol/L (3.5-5.1)
--- NOTE | 2019-02-26 05:45 | NUR ---
A/O, cooperative with intermittent anxiety; complained of abdomen pain and nausea, no vomitting; medication given and worked; urine frequency but denied dysurination, claiming that the doctor know about her urine frequency. bed rest now, will keep monitoring.
[2019-02-26 07:20] VITALS: BP 114/70
[2019-02-26] MEDS ORDERED: HYDROCODON-ACE1 EAC7 PO (10:29)
[2019-02-26] MEDS ORDERED: FLAGYL500 M1 PO (10:29)
--- NOTE | 2019-02-26 20:41 | NUR ---
PATIENT ALERT AND ORIENTED AND DISCHARGE TO HOME WITH SELF CARE IN STABLE CONDITION WITH DISCHARGE INSTRUCTIONS, HOME MEDS. PRESCRIPTIONS VIA WHEELCHAIR. DISCHARGE WITH FAMILY VIA PERSONAL VEHICLE WITH ALL PERSONAL BELONGINGS.
== END 2019-02-26 14:25 | disposition home or self-care (01) | DRG 438 ==
LOC: ER 15:09 → EROBS 16:47 → 4E 16:47 → ENTRNSPT 02-26 11:50 → EDTRNSPTSTS 02-26 11:53 → 4E 02-26 14:25
PROVIDERS: Emergency Medicine; ADMIT Hospitalist
DX: K85.90 Acute pancreatitis without necrosis or infection, unspecified (principal); E43 Unspecified severe protein-calorie malnutrition; A59.01 Trichomonal vulvovaginitis; K86.1 Other chronic pancreatitis; F31.9 Bipolar disorder, unspecified; F17.200 Nicotine dependence, unspecified, uncomplicated; K29.70 Gastritis, unspecified, without bleeding; F41.9 Anxiety disorder, unspecified; F43.10 Post-traumatic stress disorder, unspecified; Z79.899 Other long term (current) drug therapy; Z88.1 Allergy status to other antibiotic agents; Z90.49 Acquired absence of other specified parts of digestive tract; Z98.891 History of uterine scar from previous surgery
CPT/HCPCS: 10084; 10183

== ENCOUNTER 2019-05-15 19:10 | Emergency (ER) | payer OTHER ==
[~2019-05-15] VITALS: Ht 157.5 cm; Wt 58.5 kg
[~2019-05-15 19:10] MED LIST changes: +DOXYCYCLINE 10100 MG PO; +HYDROCORTISONE120 M1 TOP
[2019-05-15 22:01] VITALS: BP 117/85
[2019-05-15] MEDS ORDERED: VISTARIL 25 MG25 M1 PO (23:47)
[2019-05-15] MEDS ORDERED: TESSALON PERLE100 MG PO (23:48)
== END 2019-05-16 00:07 | disposition home or self-care (01) ==
LOC: ER 19:10
DX: J06.9 Acute upper respiratory infection, unspecified (principal); F31.9 Bipolar disorder, unspecified; F41.9 Anxiety disorder, unspecified; F17.210 Nicotine dependence, cigarettes, uncomplicated; Z88.1 Allergy status to other antibiotic agents

== ENCOUNTER 2019-08-04 19:50 | Emergency (ER) | payer OTHER ==
[~2019-08-04] VITALS: Ht 154.9 cm; Wt 63.5 kg
[~2019-08-04 19:50] MED LIST changes: +TESSALON PERLE100 MG PO; +VISTARIL 25 MG25 M1 PO
[2019-08-04 20:17] LABS: URINE BILIRUBIN NEGATIVE (Negative); URINE BLOOD NEGATIVE (Negative); URINE CLARITY CLEAR; URINE COLOR YELLOW; URINE GLUCOSE-RANDOM* NEGATIVE (Negative); URINE KETONES TRACE (Negative); URINE NITRITE-REFLEX NEGATIVE (Negative); URINE PROTEIN (DIPSTICK) NEGATIVE (Negative); URINE SPECIFIC GRAVITY <= 1.005 (1.005-1.035); URINE UROBILINOGEN 0.2 E.U./dl (0.2-1.0)
[2019-08-04 20:22] LABS: URINE LEUKOCYTES-REFLEX 2+ (Negative)
[2019-08-04 20:25] LABS: AMP/METHAMP Negative (Negative); BARBITURATES Negative (Negative); BENZODIAZEPINES Negative (Negative); COCAINE Negative (Negative); METHADONE Negative (Negative); OPIATES Negative (Negative); PCP Negative (Negative)
[2019-08-04 20:30] LABS: ABSOLUTE NEUTROPHILS 3.1 thou/uL (1.4-8.2); BASOPHILS 0.7 % (0.0-2.0); EOSINOPHILS 1.9 % (0.0-3.0); HEMATOCRIT 40.7 % (37.0-47.0); HEMOGLOBIN 13.5 gm/dL (12.0-15.0); LYMPHOCYTES 53.8 % (24.0-44.0); MCH 31.4 pg (26.0-34.0); MCHC 33.3 g/dL (28.0-37.0); MCV 94.3 fL (80.0-100.0); MONOCYTES 7.8 % (1.0-8.0); PLATELET COUNT 243 thou/uL (150-400); POLYS 35.8 % (36.0-66.0); RBC 4.31 mil/uL (4.20-5.00); RDW 13.1 % (10.5-14.5); WBC 8.6 thou/uL (4.0-11.0)
[2019-08-04 20:33] LABS: CASTS None Seen /LPF (None Seen); CRYSTALS None Seen /LPF (None Seen); SQUAMOUS 0-3 Few /LPF (0-3)
[2019-08-04 20:34] LABS: BACTERIA-REFLEX 1-9 Few /HPF (None Seen); URINE RBC None Seen /HPF (0-2); URINE WBC-REFLEX 0-5 Rare /HPF (0-5)
[2019-08-04 20:38] LABS: CALCIUM 9.4 mg/dL (8.5-10.1); CREATININE 0.6 mg/dL (0.6-1.0); POTASSIUM 3.6 mmol/L (3.5-5.1)
[2019-08-04 20:44] LABS: ALBUMIN 3.8 g/dL (3.4-5.0); TOTAL BILIRUBIN 0.2 mg/dL (<0.1-1.0); TOTAL PROTEIN 7.4 g/dL (6.4-8.2)
[2019-08-04 22:20] VITALS: BP 126/69
--- NOTE | 2019-08-05 08:59 | EKG ---
[facility] [place] [address] ELECTROCARDIOGRAM REPORT Name: ZOYA ROY Room #: DEP [facility]#: [id number] Admission: 08/04/19 Attend Phys: Discharge: 08/04/19 Date of : 74 Report #: [id number] THIS REPORT FOR: cc: Tasneem Bernstein MD, Nora P. MD Couchonnal, Luis F. MD ~ THIS REPORT FOR: //name// [facility] ED Test Date: 2019-08-04 Test Time: 20:23:50 Pat Name: ZOYA ROY Department: Room: Gender: F Webbing Se[employer]: JOHN : 1970 Requested By: Caroline Castro Order Number: [id number] MD: Karri Cohen Measurements Intervals Sayre Rate: 94 P: 33 WA: 128 QRS: 16 QRSD: 105 T: 14 QT: 400 QTc: 501 Interpretive Statements Sinus rhythm Low voltage, precordial leads Borderline T abnormalities, anterior leads Borderline prolonged QT interval Compared to ECG 09/05/2018 16:20:26 Low QRS voltage now present T-wave abnormality now present ST (T wave) deviation no longer present Electronically Signed On 08-05-2019 8:58:22 CDT by Karri Cohen [email or web address] <ELECTRONICALLY SIGNED> By: Karri Cohen MD 08/05/19857 22 22 Karri Cohen MD /EPI
== END 2019-08-04 22:15 | disposition home or self-care (01) ==
LOC: ER 19:50
PROVIDERS: Physician Assistant
DX: R06.00 Dyspnea, unspecified (principal); F10.10 Alcohol abuse, uncomplicated; F17.210 Nicotine dependence, cigarettes, uncomplicated; Z79.899 Other long term (current) drug therapy; Y90.9 Presence of alcohol in blood, level not specified

== ENCOUNTER 2020-09-13 21:25 | Inpatient (IN) | payer MEDICARE, OTHER ==
[~2020-09-13] VITALS: Ht 157.5 cm; Wt 55.4 kg
[2020-09-13 21:25] VITALS: BP 95/51
[2020-09-13 22:47] LABS: ABSOLUTE NEUTROPHILS 2.8 thou/uL (1.4-8.2); BASOPHILS 0.7 % (0.0-2.0); EOSINOPHILS 2.5 % (0.0-3.0); HEMATOCRIT 41.1 % (37.0-47.0); LYMPHOCYTES 49.3 % (24.0-44.0); MCH 32.1 pg (26.0-34.0); MCV 94.3 fL (80.0-100.0); MONOCYTES 11.4 % (1.0-8.0); PLATELET COUNT 278 thou/uL (150-400); POLYS 36.1 % (36.0-66.0); RBC 4.36 mil/uL (4.20-5.00); RDW 13.5 % (10.5-14.5); WBC 7.8 thou/uL (4.0-11.0)
[2020-09-13 22:56] LABS: CREATININE 0.7 mg/dL (0.6-1.0); POTASSIUM 3.4 mmol/L (3.5-5.1)
[2020-09-13 23:02] LABS: ALBUMIN 3.5 g/dL (3.4-5.0); DIRECT BILIRUBIN 0.2 mg/dL (<0.1-0.2); TOTAL BILIRUBIN 0.7 mg/dL (0.2-1.0); TOTAL PROTEIN 7.2 g/dL (6.4-8.2)
--- NOTE | 2020-09-13 23:28 | NUR ---
THIS NURSE ATTEMPTED TO OBTAIN IV ACCES TWICE ON THIS PT. ON THE SECOND STICK, I WAS ABLE TO OBTAIN BLOOD AND PT STATED "THAT HURTS" I TOLD THE PT THAT I NEED TO ADVANCE THE NEEDLE AND THE CATHETER IN TO THE VEIN IN ORDER TO SECURE THE LINE. PT REQUESTED THAT I NOT. THEREFORE, PT HAS NOT BEEN ABLE TO OBTAIN MEDICINE OR FLUID DUE TO THE REFUSAL OF THIS NURSE SECURING THE IV LINE.
--- NOTE | 2020-09-14 01:52 | NUR ---
PT REQUESTING ICE CHIPS. ALTHOUGH I ADVISED AGAINST DUE TO THE PT HAVING N/V SYMPTOMS THAT ARE PRESENT WITH SEVERE ABDOMINAL PAIN. PT STATES THAT SHE WILL BE FINE AND THAT IT WILL HELP.
[2020-09-14 02:42] LABS: URINE BILIRUBIN NEGATIVE (Negative); URINE BLOOD NEGATIVE (Negative); URINE CLARITY CLEAR; URINE COLOR YELLOW; URINE GLUCOSE-RANDOM* NEGATIVE (Negative); URINE KETONES TRACE (Negative); URINE NITRITE-REFLEX NEGATIVE (Negative); URINE PROTEIN (DIPSTICK) NEGATIVE (Negative); URINE UROBILINOGEN 0.2 E.U./dl (0.2-1.0)
[2020-09-14 02:45] LABS: URINE LEUKOCYTES-REFLEX 2+ (Negative)
[2020-09-14 02:58] LABS: BACTERIA-REFLEX 1-9 Few /HPF (None Seen); CASTS None Seen /LPF (None Seen); CRYSTALS None Seen /LPF (None Seen); MUCUS 0-3 Light strn/LPF (None Seen); SQUAMOUS None Seen /LPF (0-3); TRANSITIONAL EPITHEL CELL 0-3 Few /LPF (None Seen); URINE RBC 0-2 Rare /HPF (0-2); URINE WBC-REFLEX 6-15 Few /HPF (0-5)
[2020-09-14 03:04] LABS: AMP/METHAMP POSITIVE (Negative); BARBITURATES Negative (Negative); BENZODIAZEPINES Negative (Negative); COCAINE Negative (Negative); METHADONE Negative (Negative); OPIATES Negative (Negative); PCP Negative (Negative)
[2020-09-14 04:44] VITALS: BP 144/93
[2020-09-14 05:30] VITALS: BP 141/82
[2020-09-14 06:20] VITALS: BP 142/89
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
[2020-09-14 08:09] VITALS: BP 122/91
--- NOTE | 2020-09-14 10:29 | NUR ---
ASSUMED PT CARE THIS AM. NIGHT NURSE ADMITTED PT THIS AM. FINISHED MED REC FOR PT. PT IS ALERT & ORIENTED X4. PT HAS IV SITE ON L AC 22 GAUGE NS RUNNING AT 150ML/HR. PT COMPLAINT OF PAIN AND INFORMED TO DR. JARAMILLO CHANGED TO REGULAR THIS LUNCH. PT ON THE BED SLEEPING, BED ON THE LOWEST POSITION, SIDE RAILS UP, CALL LIGHT WITHIN REACH. WILL CONTINUE TO MONITOR PT. FOLLOW POC.
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
[2020-09-14 13:56] VITALS: BP 122/91
[2020-09-14] MEDS ORDERED: ZOFRAN ODT4 MG PO (14:40)
[2020-09-14] MEDS ORDERED: CIPRO500 M1 PO (14:40)
== END 2020-09-14 17:36 | disposition home or self-care (01) | DRG 690 ==
LOC: ER 21:25 → EROBS 09-14 04:36 → 4S 09-14 05:47
PROVIDERS: Emergency Medicine; ADMIT Hospitalist; ATTEND Hospitalist
DX: N39.0 Urinary tract infection, site not specified (principal); K86.1 Other chronic pancreatitis; F10.10 Alcohol abuse, uncomplicated; Y90.9 Presence of alcohol in blood, level not specified; F15.10 Other stimulant abuse, uncomplicated; F31.9 Bipolar disorder, unspecified; F17.210 Nicotine dependence, cigarettes, uncomplicated; F41.9 Anxiety disorder, unspecified; F43.10 Post-traumatic stress disorder, unspecified; Z79.899 Other long term (current) drug therapy; Z88.8 Allergy status to other drugs, medicaments and biological substances
CPT/HCPCS: 10102